=== PATIENT | male | born 1980 | race Caucasian/White ===

== ENCOUNTER 2016-05-22 07:07 | Emergency (ER) | payer OTHER ==
--- NOTE | 2016-05-22 08:41 | ERPHSYRPT ---
- History of Present Illness Time Seen by Provider: 05/22/16 07:15 Source: patient Exam Limitations: no limitations Patient Subjective Stated Complaint: pt complains of right side lower back pain states started this am when he woke up denies any problmes with urination states that the pain is worse when he moves. denies any trauma or injury to the back. Triage Nursing Assessment: pt alert warm and dry resp easy non labored pt ambulated to room without difficulty. Timing/Duration: today Method of Injury: other ( specifically, but pt. lifts equipment at work. He states the weight he lifts is 40-60#, which he places on chest-height level.) Quality: dull, aching Back Pain Location: lumbar spine Severity of Pain-Max: moderate Severity of Pain-Current: moderate Modifying Factors: Improves With: movement Associated Symptoms: denies symptoms Allergies/Adverse Reactions: No Known Drug Allergies Allergy (Unverified 07/08/14 20:53) Home Medications: No Home Meds 1 ea UD 07/08/14 [History] Hx Tetanus, Diphtheria Vaccination/Date Given: Yes Hx Influenza Vaccination/Date Given: No Hx Pneumococcal Vaccination/Date Given: No Immunizations Up to Date: Yes - Review of Systems Constitutional: No Symptoms Eyes: No Symptoms Ears, Nose, & Throat: No Symptoms Respiratory: No Symptoms Cardiac: No Symptoms Abdominal/Gastrointestinal: No Symptoms Genitourinary Symptoms: No Symptoms Musculoskeletal: Back Pain Skin: No Symptoms Psychological: No Symptoms Endocrine: No Symptoms - Past Medical History Pertinent Past Medical History: Yes Neurological History: No Pertinent History ENT History: No Pertinent History Cardiac History: Hypertension Respiratory History: No Pertinent History Endocrine Medical History: No Pertinent History Musculoskeletal History: No Pertinent History GI Medical History: No Pertinent History History: No Pertinent History Psycho-Social History: No Pertinent History Male Reproductive Disorders: No Pertinent History Other Medical History: HTN - Past Surgical History Past Surgical History: Yes Neuro Surgical History: No Pertinent History Cardiac: No Pertinent History Respiratory: No Pertinent History Gastrointestinal: No Pertinent History Genitourinary: No Pertinent History Musculoskeletal: Orthopedic Surgery Male Surgical History: No Pertinent History Other Surgical History: RIGHT FOOT - Social History Smoking Status: Current every day smoker How long have you smoked: 15 years Exposure to second hand smoke: Yes Drug Use: none Patient Lives Alone: No - Nursing Vital Signs Temperature: 98.8 F Temperature Source: Oral Pulse Rate: 82 Respiratory Rate: 18 - Physical Exam General Appearance: mild distress, moderate distress Eye Exam: eyes nml inspection Ears, Nose, Throat Exam: normal ENT inspection, pharynx normal Neck Exam: normal inspection, non-tender, supple, full range of motion Respiratory Exam: normal breath sounds, lungs clear, airway intact Cardiovascular Exam: regular rate/rhythm, normal heart sounds, normal peripheral pulses Gastrointestinal Exam: soft, normal bowel sounds Back Exam: normal inspection, normal range of motion, muscle spasm (right paralumbar) Peripheral Pulses: dorsalis-pedis (R): 4+, dorsalis-pedis (L): 4+ Neurologic Exam: alert, oriented x 3, cooperative, normal mood/affect, nml cerebellar function, nml station & gait, sensation nml Skin Exam: normal color, warm, dry SpO2 Interpretation: normal SpO2: 100 Oxygen Delivery: Room Air - Course Nursing assessment & vital signs reviewed: Yes - Progress Counseled pt/family regarding: diagnosis, need for follow-up - Departure Time of Disposition: 09:00 Departure Disposition: Home Clinical Impression: Lumbar back sprain Qualifiers: Encounter type: initial encounter Qualified Code(s): S33.5XXA - Sprain of ligaments of lumbar spine, initial encounter Condition: Stable Critical Care Time: No Prescriptions: Cyclobenzaprine HCl 10 mg [Cyclobenzaprine 10 MG] 10 mg PO TID PRN #12 tab Naproxen 1 tab PO BID #20 tablet
[2016-05-22 09:32] LABS: Collection Type VOID
[2016-05-22 09:34] LABS: COMPLETE URINE MICROSCOPIC? YES
[2016-05-22 09:35] LABS: ADD URINE CULTURE? NO (NO)
[2016-05-22 09:36] LABS: Epithelial Cells FEW /HPF (FEW); Mucus MODERATE /HPF (NEGATIVE)
[2016-05-22 09:48] VITALS: BP 155/96; PULSE 63; O2SAT 96
== END 2016-05-22 10:03 | disposition home or self-care (01) ==
LOC: ED 07:07
DX: S33.5XXA Sprain of ligaments of lumbar spine, initial encounter (principal); M54.5 Low back pain; X50.0XXA Overexertion from strenuous movement or load, initial encounter
CPT/HCPCS: 81000; 99282

== ENCOUNTER 2016-07-02 08:31 | Emergency (ER) | payer OTHER ==
[2016-07-02] MEDS ORDERED: Rocephin 1000 MG INJ IM ONE (08:43)
[2016-07-02] MEDS ORDERED: XYLOCAINE 1% HCL 20 ML MDV ONE (08:48)
[2016-07-02] MEDS ORDERED: Rocephin 1000 MG INJ ONE (08:48)
--- NOTE | 2016-07-02 08:49 | ERPHSYRPT ---
- History of Present Illness Time Seen by Provider: 07/02/16 08:44 Source: patient Exam Limitations: no limitations Patient Subjective Stated Complaint: pt reports red area noted to right wrist last night-woke this am to swelling redness et pain Triage Nursing Assessment: swelling noted-stiff movements noted to extremity Physician History: pt reports red area noted to right wrist last night-woke this am to swelling redness, no fever, took augmentin one dose he has left. no fever, no red streaks extending to elbow or fingers Timing/Duration: yesterday Severity: moderate Associated Symptoms: denies symptoms Allergies/Adverse Reactions: No Known Drug Allergies Allergy (Verified 07/02/16 08:39) Home Medications: No Home Meds 1 ea UD 07/08/14 [History] Hx Tetanus, Diphtheria Vaccination/Date Given: No Hx Influenza Vaccination/Date Given: No Hx Pneumococcal Vaccination/Date Given: No Immunizations Up to Date: Yes - Review of Systems Constitutional: No Fever, No Chills Eyes: No Symptoms Ears, Nose, & Throat: No Symptoms Respiratory: No Cough, No Dyspnea Cardiac: No Chest Pain, No Edema, No Syncope Abdominal/Gastrointestinal: No Abdominal Pain, No Nausea, No Vomiting, No Diarrhea Genitourinary Symptoms: No Dysuria Musculoskeletal: No Back Pain, No Neck Pain Skin: Cellulitis, Skin Lesions (right elbow), No Rash Neurological: No Dizziness, No Focal Weakness, No Sensory Changes Psychological: No Symptoms Endocrine: No Symptoms All Other Systems: Reviewed and Negative - Past Medical History Pertinent Past Medical History: Yes Neurological History: No Pertinent History ENT History: No Pertinent History Cardiac History: Hypertension Respiratory History: No Pertinent History Endocrine Medical History: No Pertinent History Musculoskeletal History: No Pertinent History GI Medical History: No Pertinent History History: No Pertinent History Psycho-Social History: No Pertinent History Male Reproductive Disorders: No Pertinent History Other Medical History: HTN - Past Surgical History Past Surgical History: Yes Neuro Surgical History: No Pertinent History Cardiac: No Pertinent History Respiratory: No Pertinent History Gastrointestinal: No Pertinent History Genitourinary: No Pertinent History Musculoskeletal: Orthopedic Surgery Male Surgical History: No Pertinent History Other Surgical History: RIGHT FOOT - Social History Smoking Status: Current every day smoker How long have you smoked: 15 years Exposure to second hand smoke: Yes Drug Use: none Patient Lives Alone: No - Nursing Vital Signs Nursing Vital Signs: Initial Vital Signs Temperature 98.3 F Temperature Source Oral Pulse Rate 85 Respiratory Rate 22 Blood Pressure [Left Arm] 182/78 Pain Intensity 10 - Physical Exam General Appearance: no apparent distress, alert Eye Exam: PERRL/EOMI, eyes nml inspection Ears, Nose, Throat Exam: normal ENT inspection, TMs normal, pharynx normal, moist mucous membranes Neck Exam: normal inspection, non-tender, supple, full range of motion Respiratory Exam: normal breath sounds, lungs clear, No respiratory distress Cardiovascular Exam: regular rate/rhythm, normal heart sounds, normal peripheral pulses Gastrointestinal/Abdomen Exam: soft, normal bowel sounds, No tenderness, No mass Back Exam: normal inspection, normal range of motion, No CVA tenderness, No vertebral tenderness Extremity Exam: normal inspection, normal range of motion, pelvis stable, inflammation, swelling, tenderness Neurologic Exam: alert, oriented x 3, cooperative, sensation nml, No motor deficits, No sensory deficit Skin Exam: normal color, warm, dry, No rash Lymphatic Exam: No adenopathy SpO2: 100 Oxygen Delivery: Room Air - Course Nursing assessment & vital signs reviewed: Yes Ordered Tests: Medication Summary Generic Name Dose Route Start Last Admin Trade Name Jay Jayq PRN Reason Stop Dose Admin Ceftriaxone Sodium 1,000 mg 07/02/16 08:43 Rocephin 1000 Mg Inj IM 07/02/16 08:44 STAT ONE - Progress Progress: unchanged, pain not gone completely Counseled pt/family regarding: diagnosis, need for follow-up - Departure Time of Disposition: 08:50 Departure Disposition: Home Clinical Impression: Cellulitis of forearm, right Condition: Stable Critical Care Time: No Referrals: DOCTOR,NO FAMILY [Primary Care Provider] - Instructions: Cellulitis -- Adult Additional Instructions: Please follow the instructions given to you. Please take your medication as prescribed if given. If symptoms recur or get worse, come back to the emergency room if you cannot reach your primary care physician, or call your primary care physician for an appointment. Again if your symptoms get worse, come back to the emergency room. Thanks for visiting emergency room, and let us take care of you. Prescriptions: Mupirocin [Bactroban OINTMENT] 1 gm TP BID #30 tube Levofloxacin [Levaquin 500 MG Tablet] 500 mg PO QAM #10 tablet Naproxen 375 mg [Naprosyn 375 mg] 375 mg PO Q8H #30 tablet
[2016-07-02] MEDS ORDERED: MOTRIN 600 MG PO ONE (09:00)
[2016-07-02] MEDS ORDERED: MOTRIN 600 MG ONE (09:01)
[2016-07-02 09:20] VITALS: BP 160/88; PULSE 80; O2SAT 98
== END 2016-07-02 09:19 | disposition home or self-care (01) ==
LOC: ED 08:31
DX: L03.113 Cellulitis of right upper limb (principal); I10 Essential (primary) hypertension
CPT/HCPCS: 96372; 99282; J0696; A9270-GY

== ENCOUNTER 2018-08-14 12:27 | Observation (INO) | payer OTHER, SELFPAY ==
--- NOTE | 2018-08-14 12:29 | ERPHSYRPT ---
- History of Present Illness Time Seen by Provider: 08/14/18 12:29 Source: patient Exam Limitations: no limitations Physician History: 37 y/o obese white male smoker with htn, presents with progressively worsening soa over several days and cp 2 hours captain/airline pilot. pt has had assoc bilat ankle and feet swelling. denies n/v/d. no abd pain. no bleeding or clotting disorders. no long travel and pt denies being sedentary. Timing/Duration: today (cp), day(s) (soa and leg swelling) Activities at Onset: none Severity of Dyspnea-Max: moderate Severity of Dyspnea-Current: moderate Possible Cause: no prior episodes Modifying Factors: Improves With: activity Associated Symptoms: chest pain/discomfort, ankle swelling, sweating, tingling hands, No calf pain Allergies/Adverse Reactions: No Known Drug Allergies Allergy (Verified 08/14/18 12:51) Hx Tetanus, Diphtheria Vaccination/Date Given: No Hx Influenza Vaccination/Date Given: No Hx Pneumococcal Vaccination/Date Given: No - Review of Systems Constitutional: No Symptoms Eyes: No Symptoms Ears, Nose, & Throat: No Symptoms Respiratory: Dyspnea Cardiac: Chest Pain Abdominal/Gastrointestinal: No Symptoms Genitourinary Symptoms: No Symptoms Musculoskeletal: No Symptoms Skin: No Symptoms Neurological: No Symptoms Psychological: No Symptoms Endocrine: No Symptoms Hematologic/Lymphatic: No Symptoms Immunological/Allergic: No Symptoms All Other Systems: Reviewed and Negative - Past Medical History Pertinent Past Medical History: Yes Neurological History: No Pertinent History ENT History: No Pertinent History Cardiac History: Hypertension Respiratory History: No Pertinent History Endocrine Medical History: No Pertinent History Musculoskeletal History: No Pertinent History GI Medical History: No Pertinent History History: No Pertinent History Psycho-Social History: No Pertinent History Male Reproductive Disorders: No Pertinent History Other Medical History: HTN - Past Surgical History Past Surgical History: Yes Neuro Surgical History: No Pertinent History Cardiac: No Pertinent History Respiratory: No Pertinent History Gastrointestinal: No Pertinent History Genitourinary: No Pertinent History Musculoskeletal: Orthopedic Surgery Male Surgical History: No Pertinent History Other Surgical History: RIGHT FOOT - Social History Smoking Status: Current every day smoker How long have you smoked: 15 years Exposure to second hand smoke: Yes Drug Use: none Patient Lives Alone: No - Nursing Vital Signs Nursing Vital Signs: Initial Vital Signs Temperature 98.2 F 08/14/18 12:27 Pulse Rate 88 08/14/18 12:27 Respiratory Rate 18 08/14/18 12:27 Blood Pressure 154/92 08/14/18 12:27 O2 Sat by Pulse Oximetry 97 08/14/18 12:27 Pain Scale Pain Intensity 4 - Physical Exam General Appearance: mild distress, alert, anxiety Eye Exam: PERRL/EOMI, eyes nml inspection Ears, Nose, Throat Exam: hearing grossly normal, normal ENT inspection, normal pharynx Neck Exam: normal inspection, non-tender, supple, full range of motion Respiratory Exam: normal breath sounds, chest tenderness, lungs clear, airway intact, No respiratory distress Cardiovascular/Chest Exam: normal heart sounds, regular rate/rhythm Abdominal/Gastrointestinal Exam: soft, normal bowel sounds, No tenderness Rectal Exam: not done Extremity Exam: non-tender, normal range of motion, pelvis stable, pedal edema Neurologic Exam: alert, oriented x 3, cooperative, 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 ) Ordered Tests: Active Orders 24 hr Category Date Time Status Wool Classer STAT Care 08/14/18 12:36 Active EKG-ER Only STAT Care 08/14/18 12:35 Active IV Insertion STAT Care 08/14/18 12:35 Active Pulse Oximetry (ED) STAT Care 08/14/18 12:35 Active CHEST 1 VIEW (PORTABLE) Stat Exams 08/14/18 12:35 Completed CHEST WITH CONTRAST [CT] Stat Exams 08/14/18 14:17 Completed VENOUS BILATERAL EXTREMITY [US] Stat Exams 08/14/18 14:17 Completed CBC W DIFF Stat Lab 08/14/18 12:40 Completed CMP Stat Lab 08/14/18 12:40 Completed D-DIMER QUANTITATION Stat Lab 08/14/18 12:40 Completed NT PRO BNP Stat Lab 08/14/18 12:40 Completed PROTIME WITH INR Stat Lab 08/14/18 12:40 Completed TROPONIN Q3H Lab 08/14/18 12:40 Completed TROPONIN Q3H Lab 08/14/18 15:45 Ordered TROPONIN Q3H Lab 08/14/18 18:45 Ordered TROPONIN Q3H Lab 08/14/18 21:45 Ordered TROPONIN Q3H Lab 08/15/18 00:45 Ordered Medication Summary Generic Name Dose Route Start Last Admin Trade Name Evans PRN Reason Stop Dose Admin Sodium Chloride 1,000 mls @ 50 mls/hr 08/14/18 12:45 08/14/18 12:47 Sodium Chloride 0.9% 1000 Ml IV 09/13/18 12:44 50 mls/hr .Q20H CRESENCIO Administration Discontinued Medications Generic Name Dose Route Start Last Admin Trade Name Evans PRN Reason Stop Dose Admin Aspirin 324 mg 08/14/18 12:35 08/14/18 12:47 Baby Aspirin 81 Mg Chew PO 08/14/18 12:36 324 mg STAT ONE Administration Aspirin Confirm 08/14/18 12:40 Baby Aspirin 81 Mg Chew Administered 08/14/18 12:41 Dose 324 mg .ROUTE .STK-MED ONE Enoxaparin Sodium 140 mg 08/14/18 15:08 Enoxaparin Sodium SQ 08/14/18 15:09 STAT ONE Nitroglycerin 0.4 mg 08/14/18 12:35 08/14/18 12:47 Nitrostat 0.4 Mg (Ed) SL 08/14/18 12:36 0.4 mg STAT ONE Administration Nitroglycerin Confirm 08/14/18 12:40 Nitrostat 0.4 Mg (Ed) Administered 08/14/18 12:41 Dose 0.4 mg SL .STK-MED ONE Ondansetron HCl 4 mg 08/14/18 12:35 08/14/18 12:47 Zofran 4 Mg/2 Ml Vial IV 08/14/18 12:36 4 mg STAT ONE Administration Ondansetron HCl Confirm 08/14/18 12:40 Zofran 4 Mg/2 Ml Vial Administered 08/14/18 12:41 Dose 4 mg .ROUTE .STK-MED ONE Lab/Rad Data: Laboratory Result Diagrams 08/14/18 12:40 08/14/18 12:40 Laboratory Results 08/14/18 08/14/18 08/14/18 Range/Units 12:40 12:40 12:40 WBC (4.0-10.5) K/mm3 RBC (4.1-5.6) M/mm3 Hgb (12.5-18.0) gm/dl Hct (42-50) % MCV (78-100) fl MCH (26-32) pg MCHC (32-36) g/dl RDW (11.5-14.0) % Plt Count (150-450) K/mm3 MPV (6-9.5) fl Gran % (36.0-66.0) % Eos # (Auto) (0-0.5) Absolute Lymphs (auto) (1.0-4.6) Absolute Monos (auto) (0.0-1.3) Lymphocytes % (24.0-44.0) % Monocytes % (0.0-12.0) % Eosinophils % (0.00-5.0) % Basophils % (0.0-0.4) % Absolute Granulocytes (1.4-6.9) Basophils # (0-0.4) PT 12.7 (8.83-12.87) SECONDS INR 1.12 (0.8-3.0) D-Dimer 3735 H* (215-500) ng/mL Sodium 141 (137-145) mmol/L Potassium 3.4 L (3.5-5.1) mmol/L Chloride 98 (98-107) mmol/L Carbon Dioxide 28 (22-30) mmol/L Anion Gap 18.3 H (5-15) MEQ/L BUN 19 (9-20) mg/dL Creatinine 1.25 (0.66-1.25) mg/dL Estimated GFR > 60.0 ML/MIN Glucose 110 H (74-106) mg/dL Calcium 10.4 H (8.4-10.2) mg/dL Total Bilirubin 1.20 (0.2-1.3) mg/dL AST 38 (17-59) U/L ALT 25 (0-50) U/L Alkaline Phosphatase 67 (38-126) U/L Troponin I < 0.012 (0.000-0.034) ng/mL NT-Pro-B Natriuret Pep 40.0 (0-450) pg/mL Serum Total Protein 9.0 H (6.3-8.2) g/dL Albumin 4.9 (3.5-5.0) g/dL 08/14/18 Range/Units 12:40 WBC 8.7 (4.0-10.5) K/mm3 RBC 5.00 (4.1-5.6) M/mm3 Hgb 14.8 (12.5-18.0) gm/dl Hct 42.6 (42-50) % MCV 85.2 (78-100) fl MCH 29.6 (26-32) pg MCHC 34.7 (32-36) g/dl RDW 13.7 (11.5-14.0) % Plt Count 229 (150-450) K/mm3 MPV 10.6 H (6-9.5) fl Gran % 66.0 (36.0-66.0) % Eos # (Auto) 0.13 (0-0.5) Absolute Lymphs (auto) 2.07 (1.0-4.6) Absolute Monos (auto) 0.73 (0.0-1.3) Lymphocytes % 23.9 L (24.0-44.0) % Monocytes % 8.4 (0.0-12.0) % Eosinophils % 1.5 (0.00-5.0) % Basophils % 0.2 (0.0-0.4) % Absolute Granulocytes 5.71 (1.4-6.9) Basophils # 0.02 (0-0.4) PT (8.83-12.87) SECONDS INR (0.8-3.0) D-Dimer (215-500) ng/mL Sodium (137-145) mmol/L Potassium (3.5-5.1) mmol/L Chloride (98-107) mmol/L Carbon Dioxide (22-30) mmol/L Anion Gap (5-15) MEQ/L BUN (9-20) mg/dL Creatinine (0.66-1.25) mg/dL Estimated GFR ML/MIN Glucose (74-106) mg/dL Calcium (8.4-10.2) mg/dL Total Bilirubin (0.2-1.3) mg/dL AST (17-59) U/L ALT (0-50) U/L Alkaline Phosphatase (38-126) U/L Troponin I (0.000-0.034) ng/mL NT-Pro-B Natriuret Pep (0-450) pg/mL Serum Total Protein (6.3-8.2) g/dL Albumin (3.5-5.0) g/dL - Progress Progress: improved Air Movement: good Progress Note: 08/14/18 15:19 ct chest-multiple bilat small nonoccluding pulm emboli; venous doppler nonoccluding dvt left popliteal. spoke with dr. rojas. i reviewed pt hx, condition, lab, ekg and xray results. she accepts pt for observation. will start lovenox. - Departure Referrals: DOCTOR,NO FAMILY [NON-STAFF PHY W/O PRIVILEGES] -
[2018-08-14] MEDS ORDERED: Zofran 4 MG/2 ML VIAL IV ONE (12:35)
[2018-08-14] MEDS ORDERED: Nitrostat 0.4 MG (ED) SL ONE ×2 (12:35→12:40)
[2018-08-14] MEDS ORDERED: BABY ASPIRIN 81 MG CHEW PO ONE (12:35)
[2018-08-14] MEDS ORDERED: Sodium Chloride 0.9% 1000 ML 1,000 ML ONE (12:40)
[2018-08-14] MEDS ORDERED: BABY ASPIRIN 81 MG CHEW ONE (12:40)
[2018-08-14] MEDS ORDERED: Zofran 4 MG/2 ML VIAL ONE (12:40)
[2018-08-14] MEDS ORDERED: Sodium Chloride 0.9% 1000 ML 1,000 ML IV SCH (12:45)
[2018-08-14 12:49] LABS: BASOPHIL % 0.2 % (0.0-0.4); Basophil (Absolute #) 0.02 (0-0.4); Eosinophil % 1.5 % (0.00-5.0); Eosinophil (Absolute #) 0.13 (0-0.5); Granulocyte Absolute (ANC) 5.71 (1.4-6.9); Hematocrit 42.6 % (42-50); Hemoglobin 14.8 gm/dl (12.5-18.0); Lymphocyte (Absolute #) 2.07 (1.0-4.6); Lymphocytes % 23.9 % (24.0-44.0); Mean Cell Volume 85.2 fl (78-100); Mean Corpuscular Hemoglobin 29.6 pg (26-32); Mean Corpuscular Hgb Concent. 34.7 g/dl (32-36); Mean Platelet Volume 10.6 fl (6-9.5); Monocytes % 8.4 % (0.0-12.0); Platelet Count 229 K/mm3 (150-450); Red Cell Distribution Width 13.7 % (11.5-14.0); White Blood Count 8.7 K/mm3 (4.0-10.5)
[2018-08-14 12:56] LABS: INR 1.12 (0.8-3.0); PROTIME 12.7 SECONDS (8.83-12.87)
--- NOTE | 2018-08-14 12:59 | XRAY ---
Indication: Short of breath. Chest pain. Comparison: None Portable chest demonstrates subtle lingula interstitial alveolar opacity and calcified granuloma. Remaining heart, lungs, and bony thorax normal.
[2018-08-14 13:10] LABS: ALBUMIN 4.9 g/dL (3.5-5.0); ALKALINE PHOSPHATASE 67 U/L (38-126); ANION GAP 18.3 MEQ/L (5-15); BLOOD UREA NITROGEN 19 mg/dL (9-20); CHLORIDE 98 mmol/L (98-107); Calcium 10.4 mg/dL (8.4-10.2); Carbon Dioxide 28 mmol/L (22-30); Creatinine 1 1.25 mg/dL (0.66-1.25); Glucose 110 mg/dL (74-106); Potassium 3.4 mmol/L (3.5-5.1); SGOT/AST 38 U/L (17-59); SGPT/ALT 25 U/L (0-50); SODIUM 141 mmol/L (137-145)
--- NOTE | 2018-08-14 14:47 | XRAY ---
Indication: Short of breath. Chest pressure. Elevated d-dimer. Bilateral leg swelling. Multiple contiguous axial images obtained through the chest using 80 cc Isovue 370 contrast and PE protocol. Comparison: None There is satisfactory opacification of the pulmonary arteries to include the lobar and segmental branches. Nonoccluding pulmonary emboli seen in the distal right main pulmonary artery extending into all right lobar branches. Additional nonoccluding pulmonary emboli seen in the lingula and left lower lobe branches. Heart is not enlarged. Aorta is normal in course and caliber. Left hilar calcified nodes. No pathologic mediastinal/hilar lymphadenopathy. Examination of the lung parenchyma demonstrates minimal bilateral dependent atelectasis and a few left lung calcified granulomas. No suspicious pulmonary mass, infiltrate, or effusion. Bony thorax intact. Limited upper abdomen demonstrates diffuse fatty liver and 15.5 cm splenomegaly. Impression: 1. Multiple nonoccluding bilateral pulmonary emboli as detailed. No distal infarct. 2. Incidental fatty liver, splenomegaly, and evidence for old granulomatous disease. CT DI 23.68
--- NOTE | 2018-08-14 14:52 | XRAY ---
Indication: Swelling. Two-dimensional sonogram and color Doppler imaging of the major venous vessels of the left and right leg was performed. Comparison: None Left leg demonstrates nonoccluding thrombi in the popliteal vein. No thrombus seen in the remaining examined deep venous vessels of the left and right leg including greater saphenous veins. The patent veins demonstrate normal compressibility and normal venous waveforms with and without augmentation.. Impression: Left popliteal vein nonoccluding DVT. Right leg negative for DVT.
[2018-08-14] MEDS ORDERED: ENOXAPARIN SODIUM SQ ONE (15:08)
[2018-08-14] MEDS ORDERED: Zofran 4 MG/2 ML VIAL IV PRN (15:46)
[2018-08-14] MEDS ORDERED: TYLENOL 325 MG PO PRN (15:46)
[2018-08-14] MEDS: Sodium Chloride 0.9% 1000 ML 1,000 ML IV SCH (16:13)
[2018-08-14] MEDS ORDERED: NEURONTIN 300 MG PO PRN (17:23)
--- NOTE | 2018-08-14 18:01 | PCM.HP ---
History of Present Illness - Chief Complaint Chief Complaint: PE and dvt History of Present Illness: is a 37 year old male. Patient states he has had a gradual onset of shortness of breath . Chest pain started x 1 day and he presented to ER. He was found to have a left popliteal DVT and PE,nonoccluding. ER reports VSS,EKG - normal,and Troponin not elevated. D-Dimer was elevated.Patient is on medication for Gout and HTN and Hyperlipidemia. He is a daily smoker and has a sedentary job .He states he got hooked on Percocet after a foot injury with a lawnmower and has been on methadone from the [facility] in [place] for about 3 months.Had a dose this morning but is unsure of the dose.They are weaning him.He states there is no known Family Hx of blood clots. - Review of Systems Constitutional: No Fever, No Chills Ears, Nose, & Throat: No Symptoms Respiratory: Cough, Short Of Breath, Other (denies hemoptysis) Cardiac: Chest Pain, Edema, Other (HTN taking meds as directed) Abdominal/Gastrointestinal: No Abdominal Pain, No Nausea, No Vomiting, No Diarrhea Genitourinary Symptoms: No Dysuria Musculoskeletal: Back Pain (left low back,chronic) Skin: No Rash Neurological: No Dizziness, No Focal Weakness, No Sensory Changes Psychological: Other (Hx drug dependance to Percocet.) Endocrine: No Symptoms Hematologic/Lymphatic: Other (see HPI) Medications & Allergies Home Medications: Home Medication List Allopurinol 100 mg [Zyloprim 100 mg] 1 tab PO DAILY 08/14/18 [History Confirmed 08/14/18] Benazepril HCl 20 mg PO DAILY 08/14/18 [History Confirmed 08/14/18] Fenofibrate Nanocrystallized [Fenofibrate] 145 mg PO DAILY 08/14/18 [History Confirmed 08/14/18] Gabapentin 600 mg PO DAILY PRN 08/14/18 [History Confirmed 08/14/18] Levothyroxine Sodium 50 mcg PO DAILY 08/14/18 [History Confirmed 08/14/18] Allergies/Adverse Reactions: Allergies Allergy/AdvReac Type Severity Reaction Status Date / Time No Known Drug Allergies Allergy Verified 08/14/18 12:51 - Past Medical History Past Medical History: Yes Neurological History: No Pertinent History ENT History: No Pertinent History Cardiac History: Hypertension Respiratory History: No Pertinent History, Other (smoker) Endocrine Medical History: No Pertinent History Musculoskelatal History: No Pertinent History GI Medical History: No Pertinent History History: No Pertinent History Pyscho-Social History: No Pertinent History Male Reproductive Disorders: No Pertinent History Comment: HTN - Past Surgical History Past Surgical History: Yes Neuro Surgical History: No Pertinent History Cardiac History: No Pertinent History Respiratory Surgery: No Pertinent History GI Surgical History: No Pertinent History Genitourinary Surgical Hx: No Pertinent History Musculskeletal Surgical Hx: Orthopedic Surgery Male Surgical History: No Pertinent History Other Surgical History: RIGHT FOOT - Social History Smoking Status: Current every day smoker How long have you smoked: 15 years Exposure to second hand smoke: Yes Alcohol: None Drug Use: none - Physical Exam Vital Signs: Vital Signs - 24 hr Temp Pulse Resp BP Pulse Ox 08/14/18 16:02 98.5 F 64 18 171/85 95 08/14/18 15:50 98.5 F 64 18 171/85 95 08/14/18 15:40 98.5 F 64 18 171/85 95 08/14/18 14:50 97.9 F 67 18 99/73 98 08/14/18 13:18 97.5 F 75 16 127/72 95 08/14/18 12:48 18 97 08/14/18 12:35 97 08/14/18 12:27 98.2 F 88 18 154/92 97 General Appearance: no apparent distress, alert Neurologic Exam: alert, oriented x 3, cooperative, normal mood/affect, nml cerebellar function, nml station & gait, sensation nml, No motor deficits Eye Exam: PERRL/EOMI, eyes nml inspection Ears, Nose, Throat Exam: normal ENT inspection Neck Exam: normal inspection Respiratory Exam: wheezing (left mid low lung macias), other (no dyspnea) Gastrointestinal/Abdomen Exam: other (obese,non tender) Rectal Exam: not done Back Exam: other (left paralumbar spasm) Extremity Exam: calf tenderness (left), swelling (left mid calf to ankle), other (DP pulse palpable but not bounding) Skin Exam: warm, rash Results - Labs Lab/Micro Results: Lab Results-Last 24 Hours 08/14/18 08/14/18 08/14/18 Range/Units 12:40 12:40 12:40 WBC 8.7 (4.0-10.5) K/mm3 RBC 5.00 (4.1-5.6) M/mm3 Hgb 14.8 (12.5-18.0) gm/dl Hct 42.6 (42-50) % MCV 85.2 (78-100) fl MCH 29.6 (26-32) pg MCHC 34.7 (32-36) g/dl RDW 13.7 (11.5-14.0) % Plt Count 229 (150-450) K/mm3 MPV 10.6 H (6-9.5) fl Gran % 66.0 (36.0-66.0) % Eos # (Auto) 0.13 (0-0.5) Absolute Lymphs (auto) 2.07 (1.0-4.6) Absolute Monos (auto) 0.73 (0.0-1.3) Lymphocytes % 23.9 L (24.0-44.0) % Monocytes % 8.4 (0.0-12.0) % Eosinophils % 1.5 (0.00-5.0) % Basophils % 0.2 (0.0-0.4) % Absolute Granulocytes 5.71 (1.4-6.9) Basophils # 0.02 (0-0.4) PT 12.7 (8.83-12.87) SECONDS INR 1.12 (0.8-3.0) D-Dimer 3735 H* (215-500) ng/mL Sodium 141 (137-145) mmol/L Potassium 3.4 L (3.5-5.1) mmol/L Chloride 98 (98-107) mmol/L Carbon Dioxide 28 (22-30) mmol/L Anion Gap 18.3 H (5-15) MEQ/L BUN 19 (9-20) mg/dL Creatinine 1.25 (0.66-1.25) mg/dL Estimated GFR > 60.0 ML/MIN Glucose 110 H (74-106) mg/dL Calcium 10.4 H (8.4-10.2) mg/dL Total Bilirubin 1.20 (0.2-1.3) mg/dL AST 38 (17-59) U/L ALT 25 (0-50) U/L Alkaline Phosphatase 67 (38-126) U/L Troponin I (0.000-0.034) ng/mL NT-Pro-B Natriuret Pep 40.0 (0-450) pg/mL Serum Total Protein 9.0 H (6.3-8.2) g/dL Albumin 4.9 (3.5-5.0) g/dL 08/14/18 08/14/18 Range/Units 12:40 15:45 WBC (4.0-10.5) K/mm3 RBC (4.1-5.6) M/mm3 Hgb (12.5-18.0) gm/dl Hct (42-50) % MCV (78-100) fl MCH (26-32) pg MCHC (32-36) g/dl RDW (11.5-14.0) % Plt Count (150-450) K/mm3 MPV (6-9.5) fl Gran % (36.0-66.0) % Eos # (Auto) (0-0.5) Absolute Lymphs (auto) (1.0-4.6) Absolute Monos (auto) (0.0-1.3) Lymphocytes % (24.0-44.0) % Monocytes % (0.0-12.0) % Eosinophils % (0.00-5.0) % Basophils % (0.0-0.4) % Absolute Granulocytes (1.4-6.9) Basophils # (0-0.4) PT (8.83-12.87) SECONDS INR (0.8-3.0) D-Dimer (215-500) ng/mL Sodium (137-145) mmol/L Potassium (3.5-5.1) mmol/L Chloride (98-107) mmol/L Carbon Dioxide (22-30) mmol/L Anion Gap (5-15) MEQ/L BUN (9-20) mg/dL Creatinine (0.66-1.25) mg/dL Estimated GFR ML/MIN Glucose (74-106) mg/dL Calcium (8.4-10.2) mg/dL Total Bilirubin (0.2-1.3) mg/dL AST (17-59) U/L ALT (0-50) U/L Alkaline Phosphatase (38-126) U/L Troponin I < 0.012 < 0.012 (0.000-0.034) ng/mL NT-Pro-B Natriuret Pep (0-450) pg/mL Serum Total Protein (6.3-8.2) g/dL Albumin (3.5-5.0) g/dL - Radiology Impressions Radiology Exams & Impressions: Radiology Procedures Category Date Time Status CHEST 1 VIEW (PORTABLE) Stat Exams 08/14/18 12:35 Completed CHEST WITH CONTRAST [CT] Stat Exams 08/14/18 14:17 Completed VENOUS BILATERAL EXTREMITY [US] Stat Exams 08/14/18 14:17 Completed Assessment/Plan (1) Deep vein thrombosis (DVT) of popliteal vein of left lower extremity Current Visit: Yes Status: Acute Assessment & Plan: Lovenox given in ER Code(s): I82.432 - ACUTE EMBOLISM AND THROMBOSIS OF LEFT POPLITEAL VEIN (2) Pulmonary embolism Current Visit: Yes Status: Acute Assessment & Plan: received Lovenox in ER.stable at present,no dyspnea or cough.Transition to oral anticoagulant per Pulvi Mixer Operator .(to consult,is here now). Will start Eliquis 10 mg tomorrow ,then Elliquis starter pack RX.(10 mg bid x 7 days then 5 mg bid x 6 months)Observe through tomorrow possible discharge home 08/16/18 am. Code(s): I26.99 - OTHER PULMONARY EMBOLISM WITHOUT ACUTE COR PULMONALE (3) Hypertension Current Visit: Yes Status: Acute Assessment & Plan: controlled ,continue current meds Code(s): I10 - ESSENTIAL (PRIMARY) HYPERTENSION (4) Methadone dependence Current Visit: Yes Status: Acute Assessment & Plan: Patient is a patient at [facility] and receives a daily dose , being weened. Call Clinic in AM for dose schedule. Code(s): F11.20 - OPIOID DEPENDENCE, UNCOMPLICATED (5) Hypercholesteremia Current Visit: Yes Status: Acute Assessment & Plan: continue home meds Code(s): E78.00 - PURE HYPERCHOLESTEROLEMIA, UNSPECIFIED (6) Gout Current Visit: Yes Status: Acute Assessment & Plan: asymptomatic,continue Allopurinol. Code(s): M10.9 - GOUT, UNSPECIFIED
[2018-08-14] MEDS ORDERED: ENOXAPARIN SODIUM SQ SCH (22:00)
[2018-08-15 06:00] LABS: BASOPHIL % 0.4 % (0.0-0.4); Basophil (Absolute #) 0.02 (0-0.4); Eosinophil % 3.6 % (0.00-5.0); Eosinophil (Absolute #) 0.18 (0-0.5); Granulocyte Absolute (ANC) 2.32 (1.4-6.9); Hematocrit 40.2 % (42-50); Hemoglobin 13.5 gm/dl (12.5-18.0); Lymphocyte (Absolute #) 1.87 (1.0-4.6); Lymphocytes % 37.9 % (24.0-44.0); Mean Cell Volume 87.2 fl (78-100); Mean Corpuscular Hemoglobin 29.3 pg (26-32); Mean Corpuscular Hgb Concent. 33.6 g/dl (32-36); Mean Platelet Volume 10.6 fl (6-9.5); Monocytes % 11.1 % (0.0-12.0); Platelet Count 179 K/mm3 (150-450); Red Blood Count 4.61 M/mm3 (4.1-5.6); Red Cell Distribution Width 13.9 % (11.5-14.0); White Blood Count 4.9 K/mm3 (4.0-10.5)
[2018-08-15 06:14] LABS: ALBUMIN 4.2 g/dL (3.5-5.0); ALKALINE PHOSPHATASE 59 U/L (38-126); ANION GAP 13.7 MEQ/L (5-15); BLOOD UREA NITROGEN 20 mg/dL (9-20); CHLORIDE 98 mmol/L (98-107); Calcium 9.2 mg/dL (8.4-10.2); Carbon Dioxide 30 mmol/L (22-30); Creatinine 1 0.94 mg/dL (0.66-1.25); Glucose 102 mg/dL (74-106); Potassium 3.6 mmol/L (3.5-5.1); SGOT/AST 28 U/L (17-59); SGPT/ALT 20 U/L (0-50); SODIUM 139 mmol/L (137-145); Total Protein 7.4 g/dL (6.3-8.2)
[2018-08-15] MEDS ORDERED: DOLOPHINE 10MG Tablet PO ONE (07:30)
--- NOTE | 2018-08-15 09:17 | CONS ---
CONSULT DATE: 08/14/2018 HISTORY: Bao Parker is a 37 year-old obese male who presented to the emergency room at [facility] with sudden onset of shortness of breath and chest discomfort that started two hours prior to admission. The patient reported left leg swelling for the last few days as well. He was noted to have positive D-dimer test. Subsequently, he underwent CT that showed bilateral small pulmonary emboli. Venous Doppler's performed through the emergency room were also positive for deep venous thrombosis of left popliteal area. The patient has had no obvious risk factors for deep venous thrombosis or pulmonary embolism. He also denies prior history of similar problems. He was treated with Lovenox and has been admitted for further care. At the time of my evaluation he is on room air and appears comfortable and remains hemodynamically stable. He is unaware of any family history of hypercoagulable state. However the patient appears to be at risk for the same given his current symptoms. PAST MEDICAL HISTORY: Positive for history of hypertension, hypothyroidism, gout. PAST SURGICAL HISTORY: Right ankle surgery about three years ago from a lawnmower injury. PERSONAL AND SOCIAL HISTORY: He currently works for [employer]. His job requires somewhat sedentary lifestyle. He smokes about a pack of cigarettes a day. MEDICATIONS: Home and current medications are reviewed. ALLERGIES: NKDA. PHYSICAL EXAMINATION: This is a middle aged male who appears comfortable. Vital signs noted. HEENT: Normocephalic. He is partially edentulous. NECK: Supple. CVS: First and second heart sounds are normal, regular, rhythmic. RESPIRATORY: Shows diminished breath sounds. ABDOMEN: Soft, obese. EXTREMITIES: Left lower extremity swelling is noted. LABORATORY DATA AND TESTS: Radiology tests reviewed. ASSESSMENT: This is a 37 year old male without obvious risk factors admitted with: 1) Bilateral pulmonary emboli. 2) Left lower extremity deep venous thrombosis. 3) Likely underlying hypercoagulable state. 4) Obesity. 5) Hypertension. 6) Hypothyroidism. 7) Gout. RECOMMENDATIONS: 1) I discussed with patient CT and Doppler findings. 2) The patient has been started on Lovenox, will probably switch him to Eliquis tomorrow. 3) The patient is currently without significant hypoxemia and hemodynamically stable. The same will have to be monitored for at least 24 hours. 4) If discharged, would like to continue Eliquis for at least six months at the end of which will repeat CT and Doppler's to document resolution of deep venous thrombosis and pulmonary embolism. I would recommend at that point once the clot burden has resolved the patient can be taken off anticoagulation and hypercoag work up be done. Need for smoking cessation was stressed. Continue other supportive care. I will continue to follow in outpatient setting or earlier as needed. These recommendations were discussed with Dr. Gauthier. Thank you for allowing me to participate in the care of Bao Parker.
[2018-08-15] MEDS: SYNTHROID 50 MCG PO SCH (09:42)
[2018-08-15] MEDS: ZYLOPRIM 100 MG PO SCH (09:42)
[2018-08-15] MEDS: Tricor 145 MG PO SCH (09:42)
[2018-08-15] MEDS: Lotensin 10 MG PO SCH (09:42)
[2018-08-15] MEDS: ELIQUIS 2.5 MG TABLET PO SCH ×2 (09:42→21:52)
[2018-08-15] MEDS: Sodium Chloride 0.9% 1000 ML 1,000 ML IV SCH (09:42)
[2018-08-16] MEDS ORDERED: DOLOPHINE 10MG Tablet PO ONE (06:00)
[2018-08-16] MEDS: Sodium Chloride 0.9% 1000 ML 1,000 ML IV SCH (06:27)
[2018-08-16] MEDS: Lotensin 10 MG PO SCH (09:43)
[2018-08-16] MEDS: SYNTHROID 50 MCG PO SCH (09:43)
[2018-08-16] MEDS: ZYLOPRIM 100 MG PO SCH (09:43)
[2018-08-16] MEDS: ELIQUIS 2.5 MG TABLET PO SCH (09:43)
[2018-08-16] MEDS: Tricor 145 MG PO SCH (09:43)
--- NOTE | 2018-08-16 12:37 | PCM.DS ---
Discharge Summary Date of Admission: 08/14/18 15:40 Date of Discharge: 08/16/18 Admitting Physician: TRUE MARTÍNEZ DO Primary Care Provider: PALAK ALTAMIRANO Allergies Allergies No Known Drug Allergies Allergy (Verified 08/14/18 12:51) Hospital Summary - Hospital Course Hospital Course: Patient was admitted through ER with DVT left popliteal vein and small PE. He c/ o SOB for about a week and chest pain x 1 day - Vitals & Intake/Output Vital Signs: Vital Signs Temperature 97.7 F 08/16/18 08:00 Pulse Rate 51 L 08/16/18 08:00 Respiratory Rate 16 08/16/18 08:00 Blood Pressure 106/54 08/16/18 08:00 O2 Sat by Pulse Oximetry 96 08/16/18 08:00 Oxygen-Last Documented O2 Percentage 2 Liters = 28% Intake & Output: Intake & Output 08/14/18 08/15/18 08/16/18 08/17/18 11:59 11:59 11:59 11:59 Intake Total 2561 3932 Output Total 350 2350 Balance 2211 1582 Weight 138 kg 140.3 kg - Lab Result Diagrams: 08/15/18 05:15 08/15/18 05:15 - Radiology Exams Ordered Rad Exams-Entire Visit: Radiology Procedures Category Date Time Status CHEST 1 VIEW (PORTABLE) Stat Exams 08/14/18 12:35 Completed CHEST WITH CONTRAST [CT] Stat Exams 08/14/18 14:17 Completed VENOUS BILATERAL EXTREMITY [US] Stat Exams 08/14/18 14:17 Completed - Procedures and Test Procedures and Tests throughout Hospitalization: Therapy Orders & Screens 08/14/18 16:08 Smoking Cessation Education ONCE Comment: Diagnosis: PE and dvt Smoking Status: Current every day smoker How long have you smoked: 15 years Do you dip or chew tobacco: No 08/15/18 08:25 Qualify for Home Oxygen TODAY Comment: Diagnosis: PE and dvt 08/15/18 09:47 Oxygen NASAL CANNULA 2 lpm Comment: Diagnosis: PE and dvt Final Diagnosis/Problem List - Final Discharge Diagnosis/Problem (1) Deep vein thrombosis (DVT) of popliteal vein of left lower extremity Current Visit: Yes Status: Acute Code(s): I82.432 - ACUTE EMBOLISM AND THROMBOSIS OF LEFT POPLITEAL VEIN (2) Pulmonary embolism Current Visit: Yes Status: Acute Code(s): I26.99 - OTHER PULMONARY EMBOLISM WITHOUT ACUTE COR PULMONALE (3) Hypertension Current Visit: Yes Status: Acute Code(s): I10 - ESSENTIAL (PRIMARY) HYPERTENSION (4) Methadone dependence Current Visit: Yes Status: Acute Code(s): F11.20 - OPIOID DEPENDENCE, UNCOMPLICATED (5) Hypercholesteremia Current Visit: Yes Status: Acute Code(s): E78.00 - PURE HYPERCHOLESTEROLEMIA , UNSPECIFIED (6) Gout Current Visit: Yes Status: Acute Code(s): M10.9 - GOUT, UNSPECIFIED - Discharge Disposition: Home, Self-Care Condition: Stable Prescriptions: No Action Levothyroxine Sodium 50 mcg PO DAILY Gabapentin 600 mg PO DAILY PRN PRN Reason: Pain Fenofibrate Nanocrystallized [Fenofibrate] 145 mg PO DAILY Benazepril HCl 20 mg PO DAILY Allopurinol 100 mg [Zyloprim 100 mg] 1 tab PO DAILY Follow up with: JHON PRADO [ACTIVE STAFF] - 1 month (f/u in a month )
[2018-08-16 13:43] VITALS: BP 138/80; PULSE 55; O2SAT 97
[2018-08-22] MEDS ORDERED: ELIQUIS 2.5 MG TABLET PO SCH (10:00)
== END 2018-08-16 14:30 | disposition home or self-care (01) ==
LOC: ED 12:27 → MED SURG 15:40
PROVIDERS: ADMIT Family Medicine; ATTEND Family Medicine
DX: I82.432 Acute embolism and thrombosis of left popliteal vein (principal); I26.99 Other pulmonary embolism without acute cor pulmonale; I10 Essential (primary) hypertension; F11.20 Opioid dependence, uncomplicated; E78.00 Pure hypercholesterolemia, unspecified; M10.9 Gout, unspecified; E78.5 Hyperlipidemia, unspecified; E03.9 Hypothyroidism, unspecified; Z79.899 Other long term (current) drug therapy; F17.200 Nicotine dependence, unspecified, uncomplicated; E66.9 Obesity, unspecified; Z68.38 Body mass index [BMI] 38.0-38.9, adult
CPT/HCPCS: 36000; 36415; 71045; 71260; 80053; 83880; 84484; 85025; 85379; 85610; 93005; 93041; 93268; 93970; 94762; 96360; 96361; 96372; 96374; 99285; G0378; 96375; J1650; J2405; A9270-GY

== ENCOUNTER 2018-08-19 15:47 | Emergency (ER) | payer OTHER ==
[2018-08-19 16:02] VITALS: O2SAT 98
--- NOTE | 2018-08-19 16:21 | ERPHSYRPT ---
- History of Present Illness Time Seen by Provider: 08/19/18 16:18 Source: patient Exam Limitations: no limitations (and in) Patient Subjective Stated Complaint: pt here for swelling to both lower legs off and on since sunday, he was dx in er on sunday with 2 PE and one left leg DVT and started on a blood thinner, Triage Nursing Assessment: pt alert, walked in, resp easy, skin w/d/p, no cough , has swelling to lower legs, no reddness, no pain in leg Physician History: This is a 37-year-old white male recently diagnosed with pulmonary embolism and also left lower leg DVT arrives with complaint of feeling as if his lower legs are swelling. Patient is already on elequis which he started on August 14, 2018 Past medical history includes orthopedic surgery right foot PE, high blood pressure, DVT Past surgical history includes right foot surgery Timing/Duration: day(s) (symptoms for 5 days) Severity: moderate Modifying Factors: Improves With: other (patient is on elequis for dvt and pe) Associated Symptoms: No nausea, No vomiting, No abdominal pain, No shortness of breath, No heartburn, No diaphoresis, No cough, No chills, No chest pain, No fever, No headaches, No loss of appetite, No malaise, No rash, No syncope, No seizure Allergies/Adverse Reactions: No Known Drug Allergies Allergy (Verified 08/19/18 16:01) Home Medications: Allopurinol 100 mg [Zyloprim 100 mg] 1 tab PO DAILY 08/14/18 [History] Benazepril HCl 20 mg PO DAILY 08/14/18 [History] Fenofibrate Nanocrystallized [Fenofibrate] 145 mg PO DAILY 08/14/18 [History] Gabapentin 600 mg PO DAILY PRN 08/14/18 [History] Levothyroxine Sodium 50 mcg PO DAILY 08/14/18 [History] Hx Tetanus, Diphtheria Vaccination/Date Given: No Hx Influenza Vaccination/Date Given: No Hx Pneumococcal Vaccination/Date Given: No Immunizations Up to Date: Yes - Review of Systems Constitutional: No Fever, No Chills Eyes: No Symptoms Ears, Nose, & Throat: No Symptoms Respiratory: No Cough, No Dyspnea Cardiac: No Chest Pain, No Edema, No Syncope Abdominal/Gastrointestinal: No Abdominal Pain, No Nausea, No Vomiting, No Diarrhea Genitourinary Symptoms: No Dysuria Musculoskeletal: Other (swelling of lower legs) Skin: No Rash Neurological: No Dizziness, No Focal Weakness, No Sensory Changes Psychological: No Symptoms Endocrine: No Symptoms All Other Systems: Reviewed and Negative - Past Medical History Pertinent Past Medical History: Yes Neurological History: No Pertinent History ENT History: No Pertinent History Cardiac History: Hypertension Respiratory History: No Pertinent History, Other Endocrine Medical History: No Pertinent History Musculoskeletal History: No Pertinent History GI Medical History: No Pertinent History History: No Pertinent History Psycho-Social History: No Pertinent History Male Reproductive Disorders: No Pertinent History Other Medical History: HTN,DVT,PE - Past Surgical History Past Surgical History: Yes Neuro Surgical History: No Pertinent History Cardiac: No Pertinent History Respiratory: No Pertinent History Gastrointestinal: No Pertinent History Genitourinary: No Pertinent History Musculoskeletal: Orthopedic Surgery Male Surgical History: No Pertinent History Other Surgical History: RIGHT FOOT - Social History Smoking Status: Current every day smoker How long have you smoked: 15 years Exposure to second hand smoke: Yes Drug Use: narcotics Patient Lives Alone: No - Nursing Vital Signs Nursing Vital Signs: Initial Vital Signs Temperature 98.4 F 08/19/18 15:52 Pulse Rate 55 L 08/19/18 15:52 Respiratory Rate 16 08/19/18 15:52 Blood Pressure 160/67 08/19/18 15:52 O2 Sat by Pulse Oximetry 98 08/19/18 15:52 Pain Scale Pain Intensity 0 - Physical Exam SpO2: 98 - Course Nursing assessment & vital signs reviewed: Yes EKG Interpreted by Me: RATE (50 bpm), Sinus Ignacio, NORMAL AXIS, Other (EKG: Sinus bradycardia, 50 beats per minute, normal axis, no acute ST or T wave changes essentially normal EKG.) Ordered Tests: Active Orders 24 hr Category Date Time Status EKG-ER Only STAT Care 08/19/18 16:17 Active IV Insertion STAT Care 08/19/18 17:04 Active CBC W DIFF Stat Lab 08/19/18 17:12 Completed CMP Stat Lab 08/19/18 17:12 Completed NT PRO BNP Stat Lab 08/19/18 17:12 Received Medication Summary Generic Name Dose Route Start Last Admin Trade Name Freq PRN Reason Stop Dose Admin Furosemide 20 mg 08/19/18 18:00 08/19/18 17:28 Lasix 20 Mg PO 08/19/18 18:01 20 mg DAILY CRESENCIO Administration Discontinued Medications Generic Name Dose Route Start Last Admin Trade Name Evans PRN Reason Stop Dose Admin Furosemide 20 mg 08/19/18 17:03 08/19/18 17:10 Lasix 40 Mg/4 Ml IV 08/19/18 17:04 Not Given STAT ONE Lab/Rad Data: Laboratory Result Diagrams 08/19/18 17:12 08/19/18 17:12 Laboratory Results 08/19/18 08/19/18 Range/Units 17:12 17:12 WBC 5.6 (4.0-10.5) K/mm3 RBC 4.30 (4.1-5.6) M/mm3 Hgb 12.8 (12.5-18.0) gm/dl Hct 37.7 L (42-50) % MCV 87.7 (78-100) fl MCH 29.8 (26-32) pg MCHC 34.0 (32-36) g/dl RDW 13.8 (11.5-14.0) % Plt Count 170 (150-450) K/mm3 MPV 10.3 H (6-9.5) fl Gran % 56.5 (36.0-66.0) % Eos # (Auto) 0.18 (0-0.5) Absolute Lymphs (auto) 1.77 (1.0-4.6) Absolute Monos (auto) 0.46 (0.0-1.3) Lymphocytes % 31.4 (24.0-44.0) % Monocytes % 8.2 (0.0-12.0) % Eosinophils % 3.2 (0.00-5.0) % Basophils % 0.7 (0.0-0.4) % Absolute Granulocytes 3.18 (1.4-6.9) Basophils # 0.04 (0-0.4) Sodium 141 (137-145) mmol/L Potassium 4.0 (3.5-5.1) mmol/L Chloride 106 (98-107) mmol/L Carbon Dioxide 27 (22-30) mmol/L Anion Gap 12.4 (5-15) MEQ/L BUN 14 (9-20) mg/dL Creatinine 1.17 (0.66-1.25) mg/dL Estimated GFR > 60.0 ML/MIN Glucose 88 (74-106) mg/dL Calcium 9.3 (8.4-10.2) mg/dL Total Bilirubin 0.40 (0.2-1.3) mg/dL AST 23 (17-59) U/L ALT 18 (0-50) U/L Alkaline Phosphatase 54 (38-126) U/L Serum Total Protein 7.4 (6.3-8.2) g/dL Albumin 4.2 (3.5-5.0) g/dL - Progress Progress: improved Progress Note: 08/19/18 17:18 37-year-old white male recently diagnosed with pulmonary embolism and left lower leg DVT placed on elequis, arrives with complaint that he feels like he is having swelling in his lower legs which is increased. Patient does not appear to be in acute distress vitals are stable. He has recently just started the Elequis. On physical examination patient with mild edema to the lower extremities lungs are clear heart is bradycardic but regular vitals are stable. I contacted Dr. Welch who saw the patient in the hospital here on patient was referred to Dr. Webb. Who began the patient's elequis, she actually came down and saw the patient she is requested that the patient be given Lasix 20 mg orally. I have ordered CBC CMP and BMP at her request. she states she will see the patient tomorrow at 2 PM. - Departure Departure Disposition: Home Clinical Impression: Lower extremity edema, hx recent pulmonary embolism, hx recent dvt Condition: Fair Critical Care Time: No Referrals: TRUE MARTÍNEZ DO [Primary Care Provider] - Additional Instructions: Return home. Continue your current medications including your Elequis as prescribed by your family doctor/sharepoint architect. Followup with Dr. Welch tomorrow at 2 PM. Return for acute distress severe symptoms or for any problems.
[2018-08-19 16:51] VITALS: BP 117/64; PULSE 62
[2018-08-19] MEDS ORDERED: Lasix 40 MG/4 ML IV ONE (17:03)
[2018-08-19 17:14] LABS: BASOPHIL % 0.7 % (0.0-0.4); Basophil (Absolute #) 0.04 (0-0.4); Eosinophil % 3.2 % (0.00-5.0); Eosinophil (Absolute #) 0.18 (0-0.5); Granulocyte Absolute (ANC) 3.18 (1.4-6.9); Granulocytes % 56.5 % (36.0-66.0); Hematocrit 37.7 % (42-50); Hemoglobin 12.8 gm/dl (12.5-18.0); Lymphocyte (Absolute #) 1.77 (1.0-4.6); Lymphocytes % 31.4 % (24.0-44.0); Mean Cell Volume 87.7 fl (78-100); Mean Corpuscular Hemoglobin 29.8 pg (26-32); Mean Platelet Volume 10.3 fl (6-9.5); Monocytes % 8.2 % (0.0-12.0); Platelet Count 170 K/mm3 (150-450); Red Cell Distribution Width 13.8 % (11.5-14.0); White Blood Count 5.6 K/mm3 (4.0-10.5)
[2018-08-19 17:26] LABS: ALBUMIN 4.2 g/dL (3.5-5.0); ALKALINE PHOSPHATASE 54 U/L (38-126); ANION GAP 12.4 MEQ/L (5-15); BLOOD UREA NITROGEN 14 mg/dL (9-20); CHLORIDE 106 mmol/L (98-107); Calcium 9.3 mg/dL (8.4-10.2); Carbon Dioxide 27 mmol/L (22-30); Creatinine 1 1.17 mg/dL (0.66-1.25); Glucose 88 mg/dL (74-106); SGOT/AST 23 U/L (17-59); SGPT/ALT 18 U/L (0-50); SODIUM 141 mmol/L (137-145); Total Protein 7.4 g/dL (6.3-8.2)
[2018-08-19] MEDS: LASIX 20 MG PO SCH (17:28)
== END 2018-08-19 17:56 | disposition home or self-care (01) ==
LOC: ED 15:47
DX: R60.0 Localized edema (principal); Z86.711 Personal history of pulmonary embolism; Z86.718 Personal history of other venous thrombosis and embolism; Z79.01 Long term (current) use of anticoagulants; I10 Essential (primary) hypertension; Z79.899 Other long term (current) drug therapy
CPT/HCPCS: 36415; 80053; 83880; 85025; 93005; 99284; A9270-GY

== ENCOUNTER 2018-08-28 20:08 | Emergency (ER) | payer OTHER ==
[2018-08-28 20:41] LABS: BASOPHIL % 0.4 % (0.0-0.4); Basophil (Absolute #) 0.03 (0-0.4); Eosinophil % 5.1 % (0.00-5.0); Eosinophil (Absolute #) 0.38 (0-0.5); Granulocyte Absolute (ANC) 4.94 (1.4-6.9); Granulocytes % 66.3 % (36.0-66.0); Hematocrit 41.1 % (42-50); Lymphocyte (Absolute #) 1.45 (1.0-4.6); Lymphocytes % 19.4 % (24.0-44.0); Mean Cell Volume 86.5 fl (78-100); Mean Corpuscular Hemoglobin 29.5 pg (26-32); Mean Corpuscular Hgb Concent. 34.1 g/dl (32-36); Mean Platelet Volume 9.9 fl (6-9.5); Monocyte (Absolute #) 0.66 (0.0-1.3); Monocytes % 8.8 % (0.0-12.0); Platelet Count 204 K/mm3 (150-450); Red Blood Count 4.75 M/mm3 (4.1-5.6); Red Cell Distribution Width 14.4 % (11.5-14.0); White Blood Count 7.5 K/mm3 (4.0-10.5)
--- NOTE | 2018-08-28 20:41 | ERPHSYRPT ---
- History of Present Illness Time Seen by Provider: 08/28/18 20:28 Source: patient Exam Limitations: no limitations Patient Subjective Stated Complaint: Left leg swelling/chest discomfort Triage Nursing Assessment: Patient ambulated back to ED and transferred self to bed. Patient complains of left lower leg swelling that started today. Patient stated he started having chest discomfort on the drive here, but just told RN. Patient states chest pain is intermittent stabbing. Patient's lungs clear a/p neyda. Heart tones audible. Patient right leg noted to be red. Patient's left leg noted to be slightly swollen with small open areas to top of left leg with clear drainage. Pulses present. Negative rocael's sign in neyda legs. Patient denies SOB. Patient states he was treated for DVT and PE two weeks ago. Physician History: This is a 37-year-old white male with history of known pulmonary embolism and left leg DVT which was diagnosed on August 14, 2018 who states he is on eloquent 5 mg orally twice a day. He arrives with complaint of swelling in his left leg he feels like his right leg is red. He is having some drainage from his left anterior leg. He states this has been going on all day he states that he did scratch his left anterior leg earlier. He states on the way to the hospital he was having some sharp left anterior chest pain is not affected with breathing no shortness of breath. Past medical history includes high blood pressure, DVT, PE, gout, hyperlipidemia. Patient apparently receives methadone. Past surgical history includes right foot surgery Timing/Duration: today Severity: moderate Modifying Factors: Improves With: other (patient was scratching his left anterior leg at some time) Associated Symptoms: chest pain (sharp chest pains left chestx2 hours not affected with breathing), No nausea, No vomiting, No abdominal pain, No shortness of breath, No heartburn, No diaphoresis, No cough, No chills, No fever , No headaches, No loss of appetite, No malaise, No rash, No syncope, No seizure , No weakness Allergies/Adverse Reactions: No Known Drug Allergies Allergy (Verified 08/28/18 20:15) Home Medications: Allopurinol 100 mg [Zyloprim 100 mg] 1 tab PO DAILY 08/14/18 [History] Benazepril HCl 20 mg PO DAILY 08/14/18 [History] Fenofibrate Nanocrystallized [Fenofibrate] 145 mg PO DAILY 08/14/18 [History] Gabapentin 600 mg PO DAILY PRN 08/14/18 [History] Levothyroxine Sodium 50 mcg PO DAILY 08/14/18 [History] Hx Tetanus, Diphtheria Vaccination/Date Given: No Hx Influenza Vaccination/Date Given: No Hx Pneumococcal Vaccination/Date Given: No Immunizations Up to Date: Yes - Review of Systems Constitutional: No Fever, No Chills Eyes: No Symptoms Ears, Nose, & Throat: No Symptoms Respiratory: No Cough, No Dyspnea Cardiac: Chest Pain (sharp chest pain left anterior chest), Edema Abdominal/Gastrointestinal: No Abdominal Pain, No Nausea, No Vomiting, No Diarrhea Genitourinary Symptoms: No Dysuria Musculoskeletal: Other (swelling left leg) Skin: Other (patient states right leg erythematous, patient with drainage from left leg where he has scratched to the area) Neurological: No Dizziness, No Focal Weakness, No Sensory Changes Psychological: No Symptoms Endocrine: No Symptoms All Other Systems: Reviewed and Negative - Past Medical History Pertinent Past Medical History: Yes Neurological History: No Pertinent History ENT History: No Pertinent History Cardiac History: Hypertension Respiratory History: No Pertinent History, Other Endocrine Medical History: No Pertinent History Musculoskeletal History: No Pertinent History GI Medical History: No Pertinent History History: No Pertinent History Psycho-Social History: No Pertinent History Male Reproductive Disorders: No Pertinent History Other Medical History: HTN,DVT,PE - Past Surgical History Past Surgical History: Yes Neuro Surgical History: No Pertinent History Cardiac: No Pertinent History Respiratory: No Pertinent History Gastrointestinal: No Pertinent History Genitourinary: No Pertinent History Musculoskeletal: Orthopedic Surgery Male Surgical History: No Pertinent History Other Surgical History: RIGHT FOOT - Social History Smoking Status: Current every day smoker How long have you smoked: years Exposure to second hand smoke: Yes Drug Use: narcotics Patient Lives Alone: No - Nursing Vital Signs Nursing Vital Signs: Initial Vital Signs Temperature 98.5 F 08/28/18 20:15 Pulse Rate 84 08/28/18 20:15 Respiratory Rate 18 08/28/18 20:15 Blood Pressure 137/74 08/28/18 20:15 O2 Sat by Pulse Oximetry 99 08/28/18 20:15 Pain Scale Pain Intensity 0 - Physical Exam General Appearance: no apparent distress, alert Eye Exam: PERRL/EOMI, eyes nml inspection Ears, Nose, Throat Exam: normal ENT inspection, TMs normal, pharynx normal, moist mucous membranes Neck Exam: normal inspection, non-tender, supple, full range of motion Respiratory Exam: normal breath sounds, lungs clear, No respiratory distress Cardiovascular Exam: regular rate/rhythm, normal heart sounds, normal peripheral pulses, capillary refill <2 sec Gastrointestinal/Abdomen Exam: soft, normal bowel sounds, No tenderness, No mass Back Exam: normal inspection, normal range of motion, No CVA tenderness, No vertebral tenderness Extremity Exam: other (venous stasis changes left anterior distal cary several abrasions with drainage anteriorly area is not hot mild edema left lower extremity) Neurologic Exam: alert, oriented x 3, cooperative, normal mood/affect, nml cerebellar function, nml station & gait, sensation nml, No motor deficits Skin Exam: warm, dry, other (stasis dermatitis left distal anterior cary with several abrasions in this area some drainage), No rash Lymphatic Exam: No adenopathy SpO2 Interpretation: normal (995) SpO2: 99 - Course Nursing assessment & vital signs reviewed: Yes EKG Interpreted by Me: RATE (73 bpm), Sinus Rhythm, NORMAL AXIS, Other (EKG: Sinus rhythm, 73 beats per minute, normal axis, no acute ST or T wave changes, normal EKG compared to August 14, 2018) - Radiology Exams Chest X-ray Interpretation: Interpreted by me (no acute disease process noted) Ordered Tests: Active Orders 24 hr Category Date Time Status [employer] STAT Care 08/28/18 20:34 Active EKG-ER Only STAT Care 08/28/18 20:33 Active IV Insertion STAT Care 08/28/18 20:33 Active Pulse Oximetry (ED) STAT Care 08/28/18 20:33 Active Wound Care STAT Care 08/28/18 20:47 Active CHEST 1 VIEW (PORTABLE) Stat Exams 08/28/18 20:34 Taken BLOOD CULTURE Stat Lab 08/28/18 21:06 Received CBC W DIFF Stat Lab 08/28/18 20:30 Completed CMP Stat Lab 08/28/18 20:30 Completed CULTURE,WOUND Stat Lab 08/28/18 20:48 Ordered D-DIMER QUANTITATION Stat Lab 08/28/18 20:30 Completed NT PRO BNP Stat Lab 08/28/18 20:30 Completed PROTIME WITH INR Stat Lab 08/28/18 20:30 Completed PTT Stat Lab 08/28/18 20:30 Completed TROPONIN Q3H Lab 08/28/18 20:30 Completed TROPONIN Q3H Lab 08/28/18 23:30 Completed TROPONIN Q3H Lab 08/29/18 02:45 Ordered TROPONIN Q3H Lab 08/29/18 05:45 Ordered TROPONIN Q3H Lab 08/29/18 08:45 Ordered Medication Summary Discontinued Medications Generic Name Dose Route Start Last Admin Trade Name Freq PRN Reason Stop Dose Admin Bacitracin Zinc 0.9 gm 08/28/18 20:47 08/28/18 20:51 Baciguent Packet TP 08/28/18 20:48 0.9 gm STAT ONE Administration Bacitracin Zinc Confirm 08/28/18 20:51 Baciguent Packet Administered 08/28/18 20:52 Dose 1 gm .ROUTE .STK-MED ONE Cephalexin HCl 500 mg 08/28/18 21:21 08/28/18 21:25 Keflex 250 Mg/5 Ml Susp PO 08/28/18 21:22 Not Given STAT ONE Cephalexin HCl Confirm 08/28/18 21:22 Keflex 500 Mg Administered 08/28/18 21:23 Dose 500 mg .ROUTE .STK-MED ONE Cephalexin HCl 500 mg 08/28/18 21:24 08/28/18 21:25 Keflex 500 Mg PO 08/28/18 21:25 500 mg STAT ONE Administration Lab/Rad Data: Laboratory Result Diagrams 08/28/18 20:30 08/28/18 20:30 Laboratory Results 08/28/18 08/28/18 08/28/18 Range/Units 23:30 20:30 20:30 WBC (4.0-10.5) K/mm3 RBC (4.1-5.6) M/mm3 Hgb (12.5-18.0) gm/dl Hct (42-50) % MCV (78-100) fl MCH (26-32) pg MCHC (32-36) g/dl RDW (11.5-14.0) % Plt Count (150-450) K/mm3 MPV (6-9.5) fl Gran % (36.0-66.0) % Eos # (Auto) (0-0.5) Absolute Lymphs (auto) (1.0-4.6) Absolute Monos (auto) (0.0-1.3) Lymphocytes % (24.0-44.0) % Monocytes % (0.0-12.0) % Eosinophils % (0.00-5.0) % Basophils % (0.0-0.4) % Absolute Granulocytes (1.4-6.9) Basophils # (0-0.4) PT 15.4 H (8.83-12.87) SECONDS INR 1.35 (0.8-3.0) APTT 35.1 (24.1-36.1) SECONDS D-Dimer 564 H* (215-500) ng/mL Sodium (137-145) mmol/L Potassium (3.5-5.1) mmol/L Chloride (98-107) mmol/L Carbon Dioxide (22-30) mmol/L Anion Gap (5-15) MEQ/L BUN (9-20) mg/dL Creatinine (0.66-1.25) mg/dL Estimated GFR ML/MIN Glucose (74-106) mg/dL Calcium (8.4-10.2) mg/dL Total Bilirubin (0.2-1.3) mg/dL AST (17-59) U/L ALT (0-50) U/L Alkaline Phosphatase (38-126) U/L Troponin I < 0.012 < 0.012 (0.000-0.034) ng/mL NT-Pro-B Natriuret Pep (0-450) pg/mL Serum Total Protein (6.3-8.2) g/dL Albumin (3.5-5.0) g/dL 08/28/18 08/28/18 Range/Units 20:30 20:30 WBC 7.5 (4.0-10.5) K/mm3 RBC 4.75 (4.1-5.6) M/mm3 Hgb 14.0 (12.5-18.0) gm/dl Hct 41.1 L (42-50) % MCV 86.5 (78-100) fl MCH 29.5 (26-32) pg MCHC 34.1 (32-36) g/dl RDW 14.4 H (11.5-14.0) % Plt Count 204 (150-450) K/mm3 MPV 9.9 H (6-9.5) fl Gran % 66.3 H (36.0-66.0) % Eos # (Auto) 0.38 (0-0.5) Absolute Lymphs (auto) 1.45 (1.0-4.6) Absolute Monos (auto) 0.66 (0.0-1.3) Lymphocytes % 19.4 L (24.0-44.0) % Monocytes % 8.8 (0.0-12.0) % Eosinophils % 5.1 H (0.00-5.0) % Basophils % 0.4 (0.0-0.4) % Absolute Granulocytes 4.94 (1.4-6.9) Basophils # 0.03 (0-0.4) PT (8.83-12.87) SECONDS INR (0.8-3.0) APTT (24.1-36.1) SECONDS D-Dimer (215-500) ng/mL Sodium 139 (137-145) mmol/L Potassium 3.5 (3.5-5.1) mmol/L Chloride 99 (98-107) mmol/L Carbon Dioxide 27 (22-30) mmol/L Anion Gap 16.8 H (5-15) MEQ/L BUN 21 H (9-20) mg/dL Creatinine 1.55 H (0.66-1.25) mg/dL Estimated GFR 53.3 ML/MIN Glucose 87 (74-106) mg/dL Calcium 10.1 (8.4-10.2) mg/dL Total Bilirubin 0.90 (0.2-1.3) mg/dL AST 27 (17-59) U/L ALT 21 (0-50) U/L Alkaline Phosphatase 59 (38-126) U/L Troponin I (0.000-0.034) ng/mL NT-Pro-B Natriuret Pep 29.3 (0-450) pg/mL Serum Total Protein 8.4 H (6.3-8.2) g/dL Albumin 4.8 (3.5-5.0) g/dL - Progress Progress: improved Progress Note: 08/28/18 20:42 This is a 37-year-old white male who has a known history of DVT in his left popliteal vein also with a known history of pulmonary embolisms which were diagnosed on August 14, 2016. Patient has been being treated with Elequis, and he states he is now on 5 mg twice a day. He states that today he noticed he was having some swelling in his left lower leg he also has some weeping in his left lower leg on exam he has some stasis dermatitis of the left lower leg and he has some abrasions he scratching the area areas erythematous but is not hot. Patient does state that this is been bothering him all day today he states that he was on the way to the hospital and started having some left anterior lateral chest pain which is sharp not associated with breathing he has no shortness of breath he has no nausea no vomiting no fevers. Patient has been recently seen in the emergency room for similar condition on August 19, 2018 patient was placed on a "water pill" by his family secondary to this. The patient also has a history of a methadone clinic and will avoid narcotic analgesia on this patient he does not appear to be in acute distress or severe symptoms. He does state he notices symptoms while at work. Will go ahead and obtain CBC CMP d-dimer PT PTT BMP chest x-ray. Patient's EKG normal sinus rhythm 73 beats per minute normal axis normal EKG. Will go ahead and obtain wound cultures and blood cultures on this patient 08/28/18 21:22 Patient's labs and d-dimer is 564 which is markedly improved from [id number] which was obtained on August 14, 2018 Patient was EKG normal sinus rhythm no acute ST or T wave changes Patient's chest x-ray unremarkable no acute disease process patient's chemistry sodium 139 potassium 3.5 chloride 99 bicarbonate 27 BUN 21 creatinine 1.55 glucose is 87 troponin is less than 0.012 BNP is 29.3 CBC White blood cell 7.5 hemoglobin 14 hematocrit 41.1 platelets 204 Patient is in no acute distress Patient's abrasion on his left leg has been cultured. I've discussed the patient's case with Dr. carrion. Had initially planned to place patient on Bactrim however patient apparently on benazepril and can interact with Bactrim potentially leading to elevated potassium levels therefore we'll place patient on Keflex 500 mg orally every 6 hours for 7 days. Will repeat patient's troponin. . Patient with atypical sharp chest pain patient is already on Elequis, will avoid aspirin at this time. I discussed this with Dr. Welch. Patient's legs appear to be markedly improved with elevation of both legs. Will await repeat troponin anticipate discharge. Repeat troponin within normal limits will discharge patient patient in no distress at this time. 08/28/18 21:25 08/28/18 21:29 08/29/18 00:11 - Departure Departure Disposition: Home Clinical Impression: Lower extremity edema, Abrasion, left lower leg, initial encounter, early cellulitis left leg, History of DVT (deep vein thrombosis), History of pulmonary embolism, Chest pain, non-cardiac Condition: Fair Critical Care Time: No Referrals: TRUE MARTÍNEZ DO [Primary Care Provider] - Additional Instructions: Return home. Continue Elequis as prescribed by your family Dr. Thompson as prescribed. Elevate legs 24-48 hours. Followup with your family . Return for acute distress or for severe symptoms. Prescriptions: Cephalexin Mh 500 mg [Keflex 500 mg] 500 mg PO Q6H #28 capsule
[2018-08-28] MEDS ORDERED: BACIGUENT PACKET TP ONE (20:47)
[2018-08-28 20:49] LABS: INR 1.35 (0.8-3.0); PROTIME 15.4 SECONDS (8.83-12.87)
[2018-08-28 20:51] LABS: PTT 35.1 SECONDS (24.1-36.1)
[2018-08-28] MEDS ORDERED: BACIGUENT PACKET ONE (20:51)
[2018-08-28 21:02] LABS: ALBUMIN 4.8 g/dL (3.5-5.0); ANION GAP 16.8 MEQ/L (5-15); BILIRUBIN,TOTAL 0.9 mg/dL (0.2-1.3); Calcium 10.1 mg/dL (8.4-10.2); Creatinine 1 1.55 mg/dL (0.66-1.25); NT PRO BNP 29.3 pg/mL (0-450); Potassium 3.5 mmol/L (3.5-5.1); Total Protein 8.4 g/dL (6.3-8.2)
[2018-08-28] MEDS ORDERED: KEFLEX 250 MG/5 ML SUSP PO ONE (21:21)
[2018-08-28] MEDS ORDERED: KEFLEX 500 MG ONE (21:22)
[2018-08-28] MEDS ORDERED: KEFLEX 500 MG PO ONE (21:24)
[2018-08-28 23:57] VITALS: BP 95/59; PULSE 80
[2018-08-29 00:14] VITALS: O2SAT 99
--- NOTE | 2018-08-29 08:40 | XRAY ---
Indication: Chest pain. Comparison: August 14, 2018. Portable chest is clear again with left base calcified granuloma. Heart is not enlarged. Bony thorax intact. No new/acute findings. Impression: Nonacute chest. Again evidence for old granulomatous disease.
== END 2018-08-29 00:29 | disposition home or self-care (01) ==
LOC: ED 20:08
DX: R60.0 Localized edema (principal); S80.812A Abrasion, left lower leg, initial encounter; L03.116 Cellulitis of left lower limb; Z86.718 Personal history of other venous thrombosis and embolism; Z86.711 Personal history of pulmonary embolism; R07.89 Other chest pain; Z79.01 Long term (current) use of anticoagulants; I10 Essential (primary) hypertension; M10.9 Gout, unspecified; E78.5 Hyperlipidemia, unspecified; Z79.899 Other long term (current) drug therapy
CPT/HCPCS: 36000; 36415; 71045; 80053; 83880; 84484; 85025; 85379; 85610; 85730; 87040; 87070; 87077; 87186; 93005; 93041; 94760; 99284; A9270-GY

== ENCOUNTER 2019-07-13 22:25 | Emergency (ER) | payer OTHER ==
[2019-07-13] MEDS ORDERED: DELTASONE 20 MG PO ONE (22:59)
[2019-07-13] MEDS ORDERED: DUONEB 0.5-3 MG/3 ml Neb IH ONE ×2 (22:59→23:04)
[2019-07-13] MEDS ORDERED: DELTASONE 20 MG ONE ×2 (23:02→23:37)
--- NOTE | 2019-07-13 23:04 | ERPHSYRPT ---
- History of Present Illness Time Seen by Provider: 07/13/19 22:50 Source: patient Exam Limitations: no limitations Patient Subjective Stated Complaint: SOB and bilat foot swelling Triage Nursing Assessment: pt to ED c/o SOB x 1 day and bilateral lower extremity swelling x few days. denies pain at this time, no fever, cough, or other COVID related sx. noted wheezing on inspiration on auscultation. pt on room air. heart sounds clear. ambulatory to room per self. A&Ox3. communicates appropriately. Physician History: 38 years old male with history of DVT/PE on Eliquis, hypertension, tobacco abuse presented in the ER with chief complaint of bilateral lower extremity swelling for last few days with progressive worsening and this evening started to have some shortness of breath and chest pressure and tightness. Denies any significant aggravating or relieving factors. Has chronic smoker cough which is not any worse than usual. Denies any fever or chills. He has been wheezing more than usual. Patient has been taking Eliquis regularly and did not miss a dose. Timing/Duration: day(s), gradual onset Activities at Onset: activity Severity of Dyspnea-Max: moderate Severity of Dyspnea-Current: mild Possible Cause: occasional episodes Associated Symptoms: chest pain/discomfort, edema, ankle swelling, leg swelling , No cough, No painful breathing, No productive cough Allergies/Adverse Reactions: No Known Drug Allergies Allergy (Verified 08/28/18 20:15) Home Medications: Allopurinol 100 mg [Zyloprim 100 mg] 1 tab PO DAILY 08/14/18 [History] Benazepril HCl 20 mg PO DAILY 08/14/18 [History] Fenofibrate Nanocrystallized [Fenofibrate] 145 mg PO DAILY 08/14/18 [History] Gabapentin 600 mg PO DAILY PRN 08/14/18 [History] Levothyroxine Sodium 50 mcg PO DAILY 08/14/18 [History] Hx Tetanus, Diphtheria Vaccination/Date Given: Yes Hx Influenza Vaccination/Date Given: Yes Hx Pneumococcal Vaccination/Date Given: No Travel Risk - International Travel Have you traveled outside of the country in past 3 weeks: No Have you or anyone close to you been diagnosed with or: No Do your reside in a community with a known COVID-19 case?: Yes If Yes where:: [place] - Coronavirus Screening Has patient experienced Coronavirus symptoms: No Symptoms experienced: respiratory symptoms (i.e.Cought,shortness of breath) Date of respiratory symptoms onset:: 07/13/19 - Review of Systems Constitutional: No Symptoms Eyes: No Symptoms Ears, Nose, & Throat: No Symptoms Respiratory: Cough, Dyspnea, Wheezing Cardiac: Chest Pain, Edema Abdominal/Gastrointestinal: No Symptoms Genitourinary Symptoms: No Symptoms Musculoskeletal: No Symptoms Skin: No Symptoms Neurological: No Symptoms Psychological: No Symptoms Endocrine: No Symptoms Hematologic/Lymphatic: No Symptoms Immunological/Allergic: No Symptoms - Past Medical History Pertinent Past Medical History: Yes Neurological History: No Pertinent History ENT History: No Pertinent History Cardiac History: Hypertension Respiratory History: No Pertinent History, Other Endocrine Medical History: No Pertinent History Musculoskeletal History: No Pertinent History GI Medical History: No Pertinent History History: No Pertinent History Psycho-Social History: No Pertinent History Male Reproductive Disorders: No Pertinent History Other Medical History: HTN,DVT,PE - Past Surgical History Past Surgical History: Yes Neuro Surgical History: No Pertinent History Cardiac: No Pertinent History Respiratory: No Pertinent History Gastrointestinal: No Pertinent History Genitourinary: No Pertinent History Musculoskeletal: Orthopedic Surgery Male Surgical History: No Pertinent History Other Surgical History: RIGHT FOOT - Social History Smoking Status: Current every day smoker How long have you smoked: years Exposure to second hand smoke: Yes Drug Use: none Patient Lives Alone: No - Nursing Vital Signs Nursing Vital Signs: Initial Vital Signs Temperature 98.0 F 07/13/19 22:34 Pulse Rate 59 L 07/13/19 22:34 Respiratory Rate 20 07/13/19 22:34 Blood Pressure 179/91 07/13/19 22:34 O2 Sat by Pulse Oximetry 99 07/13/19 22:34 Pain Scale Pain Intensity 0 - Physical Exam General Appearance: no apparent distress Eye Exam: PERRL/EOMI, eyes nml inspection Ears, Nose, Throat Exam: hearing grossly normal, normal ENT inspection, normal pharynx Neck Exam: normal inspection, non-tender, supple, full range of motion Respiratory Exam: wheezing, No chest tenderness, No accessory muscle use, No crackles/rales Cardiovascular/Chest Exam: normal heart sounds, regular rate/rhythm Abdominal/Gastrointestinal Exam: soft, normal bowel sounds, No tenderness Extremity Exam: non-tender, swelling (one plus bilateral pitting edema) Neurologic Exam: alert, oriented x 3, cooperative Skin Exam: normal color, warm, dry SpO2 Interpretation: normal SpO2: 99 O2 Delivery: Room Air - Course Nursing assessment & vital signs reviewed: Yes EKG Interpreted by Me: RATE, Sinus Rhythm, NORMAL AXIS, NORMAL INTERVALS, NORMAL QRS Ordered Tests: Active Orders 24 hr Category Date Time Status Blackjack Supervisor STAT Care 07/13/19 22:59 Active EKG-ER Only STAT Care 07/13/19 22:59 Active IV Insertion STAT Care 07/13/19 22:59 Active Isolation, Initiate & Maintain Q12H Care 07/13/19 22:51 Active CHEST 2 VIEWS (PA AND LAT) Stat Exams 07/13/19 22:59 Taken CBC W DIFF Stat Lab 07/13/19 23:11 Completed CMP Stat Lab 07/13/19 23:11 Completed Lactic Acid Stat Lab 07/13/19 23:10 Completed NT PRO BNP Stat Lab 07/13/19 23:11 Completed TROPONIN Q3H Lab 07/13/19 23:11 Completed TROPONIN Q3H Lab 07/14/19 02:00 Ordered TROPONIN Q3H Lab 07/14/19 05:00 Ordered TROPONIN Q3H Lab 07/14/19 08:00 Ordered TROPONIN Q3H Lab 07/14/19 11:00 Ordered Peak Expiratory Flow Rate ONCE RT 07/13/19 23:38 Active Respiratory Therapy Assessment DAILY RT 07/13/19 23:38 Active Medication Summary Discontinued Medications Generic Name Dose Route Start Last Admin Trade Name Freq PRN Reason Stop Dose Admin Albuterol/Ipratropium 3 ml 07/13/19 22:59 07/13/19 23:08 Duoneb 0.5-3 Mg/3 Ml Neb IH 07/13/19 23:00 3 ml STAT ONE Administration Albuterol/Ipratropium Confirm 07/13/19 23:04 Duoneb 0.5-3 Mg/3 Ml Neb Administered 07/13/19 23:05 Dose 3 ml IH .STK-MED ONE Prednisone 60 mg 07/13/19 22:59 07/13/19 23:38 Deltasone 20 Mg PO 07/13/19 23:00 60 mg STAT ONE Administration Prednisone Confirm 07/13/19 23:02 Deltasone 20 Mg Administered 07/13/19 23:03 Dose 60 mg .ROUTE .STK-MED ONE Prednisone Confirm 07/13/19 23:37 Deltasone 20 Mg Administered 07/13/19 23:38 Dose 60 mg .ROUTE .STK-MED ONE Lab/Rad Data: Laboratory Result Diagrams 07/13/19 23:11 07/13/19 23:11 Laboratory Results 07/13/19 07/13/19 07/13/19 Range/Units 23:11 23:11 23:11 WBC 7.3 (4.0-10.5) K/mm3 RBC 5.27 (4.1-5.6) M/mm3 Hgb 15.2 (12.5-18.0) gm/dl Hct 45.1 (42-50) % MCV 85.6 (78-100) fl MCH 28.8 (26-32) pg MCHC 33.7 (32-36) g/dl RDW 14.5 H (11.5-14.0) % Plt Count 183 (150-450) K/mm3 MPV 9.7 (7.5-11.0) fl Gran % 58.1 (36.0-66.0) % Eos # (Auto) 0.13 (0-0.5) Absolute Lymphs (auto) 2.20 (1.0-4.6) Absolute Monos (auto) 0.69 (0.0-1.3) Lymphocytes % 30.3 (24.0-44.0) % Monocytes % 9.5 (0.0-12.0) % Eosinophils % 1.8 (0.00-5.0) % Basophils % 0.3 (0.0-0.4) % Absolute Granulocytes 4.22 (1.4-6.9) Basophils # 0.02 (0-0.4) Sodium 142 (137-145) mmol/L Potassium 3.7 (3.5-5.1) mmol/L Chloride 105 (98-107) mmol/L Carbon Dioxide 27 (22-30) mmol/L Anion Gap 13.1 (5-15) MEQ/L BUN 11 (9-20) mg/dL Creatinine 0.72 (0.66-1.25) mg/dL Estimated GFR > 60.0 ML/MIN Glucose 107 H (74-106) mg/dL Lactic Acid (0.4-2.0) Calcium 9.2 (8.4-10.2) mg/dL Total Bilirubin 0.60 (0.2-1.3) mg/dL AST 36 (17-59) U/L ALT 33 (0-50) U/L Alkaline Phosphatase 98 (38-126) U/L Troponin I < 0.012 (0.000-0.034) ng/mL NT-Pro-B Natriuret Pep 103 (0-450) pg/mL Serum Total Protein 7.9 (6.3-8.2) g/dL Albumin 4.3 (3.5-5.0) g/dL 07/13/19 Range/Units 23:10 WBC (4.0-10.5) K/mm3 RBC (4.1-5.6) M/mm3 Hgb (12.5-18.0) gm/dl Hct (42-50) % MCV (78-100) fl MCH (26-32) pg MCHC (32-36) g/dl RDW (11.5-14.0) % Plt Count (150-450) K/mm3 MPV (7.5-11.0) fl Gran % (36.0-66.0) % Eos # (Auto) (0-0.5) Absolute Lymphs (auto) (1.0-4.6) Absolute Monos (auto) (0.0-1.3) Lymphocytes % (24.0-44.0) % Monocytes % (0.0-12.0) % Eosinophils % (0.00-5.0) % Basophils % (0.0-0.4) % Absolute Granulocytes (1.4-6.9) Basophils # (0-0.4) Sodium (137-145) mmol/L Potassium (3.5-5.1) mmol/L Chloride (98-107) mmol/L Carbon Dioxide (22-30) mmol/L Anion Gap (5-15) MEQ/L BUN (9-20) mg/dL Creatinine (0.66-1.25) mg/dL Estimated GFR ML/MIN Glucose (74-106) mg/dL Lactic Acid 1.5 (0.4-2.0) Calcium (8.4-10.2) mg/dL Total Bilirubin (0.2-1.3) mg/dL AST (17-59) U/L ALT (0-50) U/L Alkaline Phosphatase (38-126) U/L Troponin I (0.000-0.034) ng/mL NT-Pro-B Natriuret Pep (0-450) pg/mL Serum Total Protein (6.3-8.2) g/dL Albumin (3.5-5.0) g/dL - Progress Progress: re-examined Air Movement: good Progress Note: 07/14/19 00:11 Years old is evaluated for lower extremity swelling and shortness of breath. Patient is wheezing on presentation, given steroid and breathing treatment, on reevaluation breathing is much better. Chest x-ray did not show focal consolidation or pulmonary edema. EKG showed normal sinus rhythm with no acute ischemic changes. Negative initial troponins. Unremarkable chemistries. Although he does have bilateral lower extremity swelling with pitting edema, I would place him on a short course of Lasix to go home. No signs of cellulitis. Patient has been taking Eliquis regularly and low suspicion for DVT or PE. I believe patient has some element of COPD exacerbation/bronchitis and will treat with inhaler and steroids along with counseling about decrease smoking. Recommended outpatient follow-up. At this point I do not think patient needs any further work-up in the ER and is stable for discharge. Blood Culture(s) Obtained: No Antibiotics given: No Counseled pt/family regarding: lab results, diagnosis, need for follow-up, rad results, smoking cessation - Departure Departure Disposition: Home Clinical Impression: COPD (chronic obstructive pulmonary disease) with acute bronchitis, Pedal edema Condition: Stable Critical Care Time: No Referrals: TRUE MARTÍNEZ DO [Primary Care Provider] - (1-2 days for re evaluation ) Instructions: Chronic Obstructive Pulmonary Disease, Exacerbation of COPD (DC) Additional Instructions: Non-smoking. Follow-up with primary care for reevaluation. Return to ER for worsening lower extremity swelling, shortness of breath, palpitations, chest pain, fever or chills. Prescriptions: Albuterol 8 gm Mdi Hfa [Ventolin Hfa MDI] 8 gm IH Q4H #1 hfa.aer.ad Furosemide 20 mg [Lasix 20 mg] 20 mg PO DAILY #5 tablet Prednisone 50 mg PO DAILY #5 tablet
[2019-07-13 23:14] LABS: Absolute Neutrophil Ct (ANC) 4.22 (1.4-6.9); BASOPHIL % 0.3 % (0.0-0.4); Basophil (Absolute #) 0.02 (0-0.4); Eosinophil % 1.8 % (0.00-5.0); Eosinophil (Absolute #) 0.13 (0-0.5); Hematocrit 45.1 % (42-50); Hemoglobin 15.2 gm/dl (12.5-18.0); Lymphocytes % 30.3 % (24.0-44.0); Mean Cell Volume 85.6 fl (78-100); Mean Corpuscular Hemoglobin 28.8 pg (26-32); Mean Corpuscular Hgb Concent. 33.7 g/dl (32-36); Mean Platelet Volume 9.7 fl (7.5-11.0); Monocyte (Absolute #) 0.69 (0.0-1.3); Monocytes % 9.5 % (0.0-12.0); Neutrophil % 58.1 % (36.0-66.0); Platelet Count 183 K/mm3 (150-450); Red Blood Count 5.27 M/mm3 (4.1-5.6); Red Cell Distribution Width 14.5 % (11.5-14.0); White Blood Count 7.3 K/mm3 (4.0-10.5)
[2019-07-13 23:33] LABS: ALBUMIN 4.3 g/dL (3.5-5.0); ALKALINE PHOSPHATASE 98 U/L (38-126); ANION GAP 13.1 MEQ/L (5-15); BLOOD UREA NITROGEN 11 mg/dL (9-20); CHLORIDE 105 mmol/L (98-107); Calcium 9.2 mg/dL (8.4-10.2); Carbon Dioxide 27 mmol/L (22-30); Creatinine 1 0.72 mg/dL (0.66-1.25); Glucose 107 mg/dL (74-106); NT PRO BNP 103 pg/mL (0-450); Potassium 3.7 mmol/L (3.5-5.1); SGOT/AST 36 U/L (17-59); SGPT/ALT 33 U/L (0-50); SODIUM 142 mmol/L (137-145); Total Protein 7.9 g/dL (6.3-8.2)
[2019-07-14 00:29] VITALS: BP 124/66; PULSE 54; O2SAT 98
--- NOTE | 2019-07-14 08:30 | XRAY ---
Indication: Lower extremity edema. Comparison: March 11, 2019. PA/lateral chest again demonstrates normal heart, lungs, and bony thorax.
== END 2019-07-14 00:30 | disposition home or self-care (01) ==
LOC: ED 22:25
DX: J44.9 Chronic obstructive pulmonary disease, unspecified (principal); J20.9 Acute bronchitis, unspecified; J44.0 Chronic obstructive pulmonary disease with (acute) lower respiratory infection; M79.89 Other specified soft tissue disorders; Z86.711 Personal history of pulmonary embolism; Z79.01 Long term (current) use of anticoagulants; Z86.718 Personal history of other venous thrombosis and embolism; I10 Essential (primary) hypertension; Z72.0 Tobacco use; R60.9 Edema, unspecified
CPT/HCPCS: 36415; 71046; 80053; 83605; 83880; 84484; 85025; 93005; 93041; 94150; 94640; 99284; A9270-GY

== ENCOUNTER 2019-10-17 07:05 | Day surgery (SDC) | payer OTHER ==
[2019-10-17] MEDS ORDERED: Marcaine 0.5% SDV 10 ML ONE (07:49)
[2019-10-17] MEDS ORDERED: XYLOCAINE 1% HCL 20 ML MDV ONE (07:49)
[2019-10-17] MEDS ORDERED: Lactated Ringers 1,000 ML IV ONE (07:52)
[2019-10-17] MEDS ORDERED: Lactated Ringers 1,000 ML IV SCH (08:00)
[2019-10-17 09:06] VITALS: O2SAT 96
--- NOTE | 2019-10-17 09:19 | XRAY ---
Indication: Multiple foot injections. Intraoperative fluoroscopy was provided for 1.1 minute. 3 digital spot images submitted for interpretation demonstrates needle tip projecting over the talonavicular articulation, 2nd cuneiform, and 3rd cuneiform. Correlate with intraoperative findings/report.
--- NOTE | 2019-10-17 09:38 | XRAY ---
1 minute and 1 second fluoroscopy time in surgery for multiple foot injections.
[2019-10-17 09:54] VITALS: BP 148/78; PULSE 58
--- NOTE | 2019-10-20 08:44 | OP ---
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 PROCEDURE: Multiple injections of the mid-foot same locations indicated before. SURGEON: Rudi Escamilla DPM. FR[employer] FOODS MANAGER: None. ANESTHESIA: None. HEMOSTASIS: None. ESTIMATED BLOOD LOSS: Less than 1 cc. INJECTABLES: MATERIALS: None. INJECTABLES: Four - 5 ml syringes filled with 1 cc lidocaine plain 1%, 1 cc of 0.5% Marcaine plain, and 0.5 cc of dexamethasone phosphate 10 mg for a total of 2 cc of dexamethasone and 4 cc of 1% lidocaine plain and 4 cc of 1% Marcaine plain. INDICATION FOR SURGERY: The patient came into the outpatient clinic one week prior to his intervention with complaint of mid-foot pain with ambulation. The patient did not sustain any significant traumatic injury. However, he is an uncontrolled diabetic and he noted some pain with piano-christiansen test and motion of the tarsometatarsal joints, navicular cuneiform joint and the tarsal navicular joint on range of motion exam. This prompted me to assess him radiographically with an x-ray of his left foot which showed a significant amount of degenerative joint disease to those locations. Conservative therapy was offered and topical nonsteroidal anti-inflammatories and bracing as well as orthotics. However, he did not get relief and cannot afford the custom molded orthotics that was recommended. At this time the patient is willing to go forward with the intraarticular injections which are the next step in my treatment regimen. The patient relates that he has had this pain for some time and it is preventing him from working without complication. The patient understands all risks, benefits and complications of the injection. There was no guarantee given to the outcome of these injections. However, he was advised that the risk is minimal and if in conjunction with a custom molded orthotic or a more stable shoe with a rock bottom, he may be able to get some pain relief for a long period of time without surgical intervention. The patient agrees and the consent was signed and in the chart for the procedure today. DESCRIPTION OF PROCEDURE AND FINDINGS: The patient was evaluated in the preoperative holding area. All questions were asked to the patient's satisfaction prior to taking him into the OR. The patient was placed on the OR table in the supine position and the area was prepped aseptically utilizing a ChloraPrep and allowed to dry the appropriate amount of time. At this time a C-arm was brought into the room. The patient was draped with a lead gown in order to protect him from any radiation. Attention was drawn under fluoroscopic imaging to the tarsal navicular joint where an injection of 1% lidocaine 1 cc, 0.5% Marcaine 1 cc, and 0.5 cc of dexamethasone phosphate was injected intraarticularly under fluoroscopic guidance. Next, we worked our way distal to the naviculocunieform joint where an injection of the same cocktail was placed within this joint under fluoroscopic guidance. The two remaining injections were placed into tarsometatarsal joints two, three, four and five divided the injections in half this was performed under fluoroscopic guidance. At this time the patient had finished the procedure. All fluoroscopic imaging was saved and recorded to show that there is adequate access to the intraarticular surfaces. The patient was advised to return to the clinic. The patient handled the procedure and was returned to the postoperative anesthesia care unit with vital signs stable and vascular status intact. Postoperative orders as follows: 1) Prescription for ibuprofen 600 mg dispense 60 for pain related to arthritis. 2) The patient can weight bare to tolerance today. 3) Bandages to stay on until tomorrow morning and then the patient may bath and function as normal. 4) The patient is to follow up in two weeks' time for reassessment and gauge the potential success or failure of our treatment today and move forward with care plan.
== END 2019-10-17 09:35 | disposition home or self-care (01) ==
LOC: SDC 07:05
PROVIDERS: ATTEND Podiatrist Foot & Ankle Surgery
DX: M19.072 Primary osteoarthritis, left ankle and foot (principal); I10 Essential (primary) hypertension; Z79.01 Long term (current) use of anticoagulants; Z79.899 Other long term (current) drug therapy
CPT/HCPCS: 20600; 73620; 77002

== ENCOUNTER 2020-01-09 08:46 | Day surgery (SDC) | payer OTHER ==
[~2020-01-09 08:46] MED LIST: Lactated Ringers 1,000 ML IV ONE; Lactated Ringers 1,000 ML IV SCH
[2020-01-09] MEDS ORDERED: Lactated Ringers 1,000 ML IV ONE ×3 (08:58→14:16)
[2020-01-09] MEDS ORDERED: CLINDAMYCIN-D5W 900 MG/50 ML*** 900 MG/50 ML BAG IV SCH (09:00)
[2020-01-09] MEDS ORDERED: Marcaine 0.5%/Epinephrine 10 ML ONE (09:32)
[2020-01-09 09:53] LABS: ALBUMIN 4.4 g/dL (3.5-5.0); ALKALINE PHOSPHATASE 71 U/L (38-126); ANION GAP 11.6 MEQ/L (5-15); BLOOD UREA NITROGEN 14 mg/dL (9-20); CHLORIDE 107 mmol/L (98-107); Calcium 9.2 mg/dL (8.4-10.2); Carbon Dioxide 25 mmol/L (22-30); Creatinine 1 0.67 mg/dL (0.66-1.25); EST GLOMERULAR FILTRATION RATE > 60.0 ML/MIN; Glucose 109 mg/dL (74-106); Potassium 4.5 mmol/L (3.5-5.1); SGOT/AST 48 U/L (17-59); SGPT/ALT 41 U/L (0-50); SODIUM 139 mmol/L (137-145)
[2020-01-09] MEDS ORDERED: SUBLIMAZE 250 MCG/5 ML ONE (10:51)
[2020-01-09] MEDS ORDERED: Versed 2 MG/2 ML Injection ONE (10:51)
[2020-01-09] MEDS ORDERED: Quelicin Fliptop 200 MG/10 ML ONE (10:51)
[2020-01-09] MEDS ORDERED: Zemuron 100 MG/10 ML ONE ×2 (10:51→14:37)
[2020-01-09] MEDS ORDERED: DIPRIVAN 200 MG/20 ML IV ONE (10:51)
[2020-01-09] MEDS ORDERED: XYLOCAINE 1% HCL 20 ML MDV ONE (11:40)
[2020-01-09] MEDS ORDERED: BUPIVACAINE 0.5% VIAL IJ ONE (11:40)
[2020-01-09] MEDS ORDERED: Ephedrine Sulfate 50 MG/ML ONE (12:55)
[2020-01-09] MEDS ORDERED: Naropin 0.5% 30 ML VIAL ONE (13:03)
[2020-01-09] MEDS ORDERED: BRIDION 200MG/2ML IV ONE (15:11)
--- NOTE | 2020-01-09 15:38 | XRAY ---
Indication: Left foot fusion surgery. Intraoperative fluoroscopy was provided for 170 seconds with 12 digital spot images demonstrating 3 orthopedic screws fixating mid tarsal bones. Correlate with intraoperative findings/report.
[2020-01-09 16:40] VITALS: O2SAT 97
[2020-01-09] MEDS ORDERED: ENOXAPARIN SODIUM SQ ONE (16:45)
--- NOTE | 2020-01-09 16:45 | XRAY ---
2 minutes and 50 seconds fluoroscopy time in surgery for fusion of the left mid-foot.
[2020-01-09 16:50] VITALS: BP 119/75; PULSE 78
--- NOTE | 2020-01-13 10:15 | OP ---
SURGERY DATE/TIME: 01/09/2020 1144 INDICATION FOR SURGERY: Bao has been seeing me for approximately three months with significant amount of pain with weight bearing to the right lower extremity. He has failed multiple interventions from a conservative standpoint including but not limited to injections, custom molded orthotics, [id number] orthotic brace and [id number] nonsteroidal anti-inflammatories. The patient failed all of those therapies and he is wishing to proceed with surgical intervention at this time. He understands all of the risks and benefits a result of surgical intervention as well as complications that could occur including but not limited to nonunion, poor wound healing, delayed wound healing and potential need for surgical intervention in the future and with this he wished to proceed with surgical intervention. 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 PROCEDURE: 1) Navicular cuneiform arthrodesis. 2) Second tarsometatarsal joint arthrodesis. 3) Gastrocnemius recession. SURGEON: Rudi Escamilla DPM. PHOTOGRAPHIC PROCESS SCREEN MAKER: None. ANESTHESIA: General with preoperative popliteal and saphenous block. HEMOSTASIS: Thigh tourniquet set to 350 mm of Mercury for 120 minutes. ESTIMATED BLOOD LOSS: Less than 30 cc. MATERIALS: Partially threaded cannulated 3-0 [place] screws as well as fully threaded cortical 3-0 screws and a four-hole eccentric compression plate, 2-0 Vicryl and 3-0 Nylon. INJECTABLES: See anesthesia report. DESCRIPTION OF PROCEDURE AND FINDINGS: Following adequate assessment by the anesthesia team, the patient was brought into the OR and placed on the OR table in the supine position. At this time well-padded thigh tourniquet was applied to the left lower extremity and the tourniquet was set to 350 mm of Mercury. At this time a U-drape was applied and the left leg was prepped and draped in the typical sterile fashion and lowered onto the surgical field. At this time attention was directed to the inner aspect of the left mid-calf where a linear incision was made at the posterior-medial aspect of the left calf at the aponeurosis of the gastrocnemius. At this time 15 blade was utilized to make a 5 mm incision which was deepened using blunt dissection in order to mobilize the adipose tissue in this area. The fascia was encountered and this encountered and this again was incised utilizing the 15 blade exposing the aponeurosis of the gastrocnemius. An [place] was utilized to retract both sides of this and visualization of the aponeurosis as well as the sural nerve was made which was retracted out of the incision site and the aponeurosis was resected without complications. At this time sterile saline was utilized to flush the incision site and the fascia was coapted with a 2-0 Vicryl in an interrupted suture-type fashion. At this time 2-0 Vicryl was then utilized to coapt the subcutaneous tissue and 3-0 Nylon was then utilized to coapt the skin edges in a horizontal mattress-type fashion everting the skin. At this time attention was directed to a small site over the dorsal aspect of the navicular cuneiform and the tarsometatarsal joint this was checked under fluoroscopic imaging and a small 8 cm incision was performed in a curvilinear-type fashion this was deepened to the inferior extensor retinaculum which was incised utilizing the 15 blade. At this time a combination of blunt and sharp dissection was utilized to get down to joint surfaces in order to prevent any neurovascular structure damage and these were retracted out of the way. At this time the tibialis anterior was encountered which was retracted out of the surgical field. Dissection was made at the dorsal aspect of the full thickness flap until the neurovascular structure was encountered which was then protected utilizing a [place] throughout the remaining portion of the procedure. At this time the navicular cuneiform joint was identified and the capsule was then resected all the way to the lateral cuneiform and the joint surface was prepped with a small curette osteotome and was microfractured with 2-0 drill bit. At this time the surfaces were fenestrated. All of the cartilage was removed prior to fenestration and microdrilling so as not to cause a nonunion of the navicular cuneiform joint. At this time a singular partially threaded screw was placed from distal to proximal at the medial cuneiform and the medial body of the navicular. Following this a screw extending from the navicular tuberosity to the lateral cuneiform was placed as well as a screw from the medial cuneiform to the lateral aspect of the navicular was thrown this was done under a lag technique-type fashion in order to get good compression. At this time there was deemed to be some intercuneiform instability and a screw was thrown from medial cuneiform to the lateral cuneiform in order stabilize this. At this time attention was then directed to the second tarsometatarsal joint where the CT scan demonstrated significant joint loss as well as there was a physical manipulation of the tarsometatarsal joint caused him some significant pain. The joint was identified under fluoroscopic imaging and was prepped utilizing a curved osteotome this was fenestrated using the 2-0 drill as well as microfracture. At this time a four-hole straight plate was applied to the dorsal aspect of this and checked under fluoroscopic imaging and deemed to be adequate. The proximal holes were filled with nonlocking screws. The eccentric drill hole was drilled and a screw was placed causing compression at the fusion site and a distal locking screw was applied to the distal aspect of the second tarsometatarsal. At this time augment was utilized to fill any of the dorsal gapping although clinically there was a significant amount of plantar compression at the navicular cuneiform joint as well as the tarsometatarsal joint. At this time the subcutaneous tissue was coapted utilizing 2-0 Vicryl and 3-0 Nylon was used to coapt the skin edges in a horizontal mattress-type fashion everting the skin. A postoperative dressing consisting of Adaptic, Betadine, 4x4, Kerlix cast padding, SADAF cast padding, posterior splint and additional SADAF was applied to the left lower extremity. The patient was then reversed from anesthesia. Tourniquet was taken down at 120 minutes total tourniquet time. The patient handled the anesthesia and procedure without complication and was returned to the postoperative anesthesia care unit with vital signs stable and vascular status intact. Postoperative orders as follows: 1) Keep postoperative dressing clean, dry and intact. Do not alter dressing in any way without consulting Dr. Rudi hogue. Dressing is to remain dry throughout the postoperative course. 2) Elevate operative extremity above the level of the heart to reduce inflammation and pain. 3) Ice behind the knee to reduce inflammation. 4) Weight bearing status: Nonweight bearing to the left lower extremity. 5) Full weight bearing to the nonoperative extremity with the assistance of crutches or knee scooter. 6) Postoperative pain control: [facility]adone [facility] will address pain if necessary. 7) Postoperative infection prophylaxis: Doxycycline 100 mg every 12 hours for the next ten days. 8) Deep venous thrombosis prophylaxis: Continue Lovenox 40 mg subcu daily until weight bearing as well as continue previous blood thinner. 9) Follow up in clinic within one week of procedure. 10) Discharge the patient to home.
== END 2020-01-09 17:20 | disposition home or self-care (01) ==
LOC: SDC 08:46
PROVIDERS: ATTEND Podiatrist Foot & Ankle Surgery
DX: M19.071 Primary osteoarthritis, right ankle and foot (principal); I10 Essential (primary) hypertension; E03.9 Hypothyroidism, unspecified; Z86.718 Personal history of other venous thrombosis and embolism; Z79.899 Other long term (current) drug therapy
CPT/HCPCS: 01474; 27687; 28730; 28737; 36415; 64450; 73620; 76000; 76942; 80053; J0330; J1650; J2250; J2704; J2795; J3010

== ENCOUNTER 2020-01-10 12:18 | Emergency (ER) | payer OTHER ==
--- NOTE | 2020-01-10 12:36 | ERPHSYRPT ---
- History of Present Illness Time Seen by Provider: 01/10/20 12:30 Source: patient Exam Limitations: no limitations Patient Subjective Stated Complaint: here for sudden onset of chest pain to center of chest with sob today at noon, had surgery on foot yesterday Triage Nursing Assessment: pt alert, resp easy, skin w/d/p,has splint to lower leg , Physician History: This is an overweight 39-year-old white male who underwent a surgical procedure on his left foot yesterday. Patient was off his Eliquis for several days prior to his procedure. Patient stated that he was given Lovenox yesterday before his discharge from the hospital. He was told to begin his Eliquis today which he did. This morning, approximately 10 AM, there was sudden onset of some sharp, mild, nonradiating, central, substernal chest pain with mild associated shortness of breath. 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 Patient is on the Eliquis for this medical issue. Patient has no flulike symptoms. He has no abdominal pain. He has not noticed an increase in swelling or pain to his left lower extremity. Quality: intermittent, sharpness Severity of Pain-Max: mild Severity of Pain-Current: none Lower Extremities Pain: foot: left Modifying Factors: Improves With: nothing Associated Symptoms: none Allergies/Adverse Reactions: cephalexin [From Keflex] Allergy (Severe, Verified 01/10/20 12:23) Rash Home Medications: Benazepril HCl 10 mg PO DAILY 08/14/18 [History] Levothyroxine Sodium 50 mcg PO DAILY 08/14/18 [History] Clomiphene Citrate [Serophene] 50 mg PO UD 10/15/19 [History] Methadone HCl 75 mg PO DAILY 10/15/19 [History] Albuterol 8 gm Mdi Hfa [Ventolin Hfa MDI] 8 gm IH Q4H PRN 01/09/20 [History] Hx Tetanus, Diphtheria Vaccination/Date Given: Yes Hx Influenza Vaccination/Date Given: Yes Hx Pneumococcal Vaccination/Date Given: No Travel Risk - International Travel Have you traveled outside of the country in past 3 weeks: No - Coronavirus Screening Are you exhibiting any of the following symptoms?: No Close contact with a COVID-19 positive Pt in past 14-21 Days: No - Review of Systems Constitutional: No Symptoms Eyes: No Symptoms Ears, Nose, & Throat: No Symptoms Respiratory: Dyspnea (Mild) Cardiac: Chest Pain (Nonradiating, sharp central substernal) Abdominal/Gastrointestinal: No Symptoms Genitourinary Symptoms: No Symptoms Musculoskeletal: No Symptoms Skin: No Symptoms Neurological: No Symptoms Psychological: No Symptoms Endocrine: No Symptoms Hematologic/Lymphatic: No Symptoms Immunological/Allergic: No Symptoms All Other Systems: Reviewed and Negative - Past Medical History Pertinent Past Medical History: Yes Neurological History: No Pertinent History ENT History: No Pertinent History Cardiac History: Deep Vein Thrombosis, Hypertension Respiratory History: Other Endocrine Medical History: No Pertinent History Musculoskeletal History: No Pertinent History GI Medical History: No Pertinent History History: No Pertinent History Psycho-Social History: No Pertinent History Male Reproductive Disorders: No Pertinent History Other Medical History: HTN,DVT,PE. Gout - Past Surgical History Past Surgical History: Yes Neuro Surgical History: No Pertinent History Cardiac: No Pertinent History Respiratory: No Pertinent History Gastrointestinal: No Pertinent History Genitourinary: No Pertinent History Musculoskeletal: Orthopedic Surgery Male Surgical History: No Pertinent History Other Surgical History: RIGHT FOOT,right foot - Social History Smoking Status: Never smoker How long have you smoked: age 16 Exposure to second hand smoke: Yes Drug Use: none Patient Lives Alone: No - Nursing Vital Signs Nursing Vital Signs: Initial Vital Signs Temperature 99.1 F 01/10/20 12:19 Pulse Rate 76 01/10/20 12:19 Respiratory Rate 18 01/10/20 12:19 Blood Pressure 159/76 01/10/20 12:19 Pain Scale Pain Intensity 2 - Physical Exam General Appearance: no apparent distress, alert, anxiety, obese Eyes, Ears, Nose, Throat Exam: normal ENT inspection, moist mucous membranes Neck Exam: normal inspection, non-tender, supple, full range of motion Cardiovascular/Respiratory Exam: normal breath sounds, regular rate/rhythm, heart sounds normal, no respiratory distress Gastrointestinal/Abdominal Exam: non-tender Back Exam: normal inspection, normal range of motion, No CVA tenderness, No vertebral tenderness Hips Exam: bilateral: non-tender, normal inspection, normal range of motion Legs Exam: bilateral leg: non-tender, normal inspection, normal range of motion Knees Exam: bilateral knee: non-tender, normal inspection, normal range of motion Ankle Exam: right ankle: non-tender, normal inspection, normal range of motion, no evidence of injury Foot Exam: right foot: non-tender, normal inspection, normal range of motion, no evidence of injury, left foot: pain (Postoperative) Neuro/Tendon Exam: normal sensation, normal motor functions, normal tendon functions, responds to pain, no evidence tendon injury Mental Status Exam: alert, oriented x 3, cooperative Skin Exam: normal color, warm, dry SpO2 Interpretation: normal O2 Delivery: Room Air - Course Nursing assessment & vital signs reviewed: Yes EKG Interpreted by Me: RATE (70), Sinus Rhythm, NORMAL AXIS, prolonged QT interval, NORMAL QRS, Other (No change from comparison EKG dated 01/06/2020) Ordered Tests: Active Orders 24 hr Category Date Time Status Returned Telephone Equipment Appraiser STAT Care 01/10/20 12:37 Active EKG-ER Only STAT Care 01/10/20 12:36 Active IV Insertion STAT Care 01/10/20 12:36 Active CHEST WITH CONTRAST [CT] Stat Exams 01/10/20 12:37 Taken CBC W DIFF Stat Lab 01/10/20 12:42 Completed CMP Stat Lab 01/10/20 12:42 Completed D-DIMER QUANTITATIVE Stat Lab 01/10/20 12:42 Completed NT PRO BNP Stat Lab 01/10/20 12:42 Completed PROTIME WITH INR Stat Lab 01/10/20 12:42 Completed TROPONIN Q3H Lab 01/10/20 12:42 Completed TROPONIN Q3H Lab 01/10/20 15:45 Ordered TROPONIN Q3H Lab 01/10/20 18:45 Ordered TROPONIN Q3H Lab 01/10/20 21:45 Ordered TROPONIN Q3H Lab 01/11/20 00:45 Ordered Medication Summary Discontinued Medications Generic Name Dose Route Start Last Admin Trade Name Freq PRN Reason Stop Dose Admin Sodium Chloride 500 mls @ 500 mls/hr 01/10/20 12:37 01/10/20 13:45 Sodium Chloride 0.9% 500 Ml IV 01/10/20 13:36 500 mls/hr .Q1H ONE Administration Sodium Chloride Confirm 01/10/20 13:43 Sodium Chloride 0.9% 500 Ml Administered 01/10/20 13:44 Dose 500 mls @ ud IV .STK-MED ONE Lab/Rad Data: Laboratory Result Diagrams 01/10/20 12:42 01/10/20 12:42 Laboratory Results 01/10/20 01/10/20 01/10/20 Range/Units 12:42 12:42 12:42 WBC (4.0-10.5) K/mm3 RBC (4.1-5.6) M/mm3 Hgb (12.5-18.0) gm/dl Hct (42-50) % MCV (78-100) fl MCH (26-32) pg MCHC (32-36) g/dl RDW (11.5-14.0) % Plt Count (150-450) K/mm3 MPV (7.5-11.0) fl Gran % (36.0-66.0) % Eos # (Auto) (0-0.5) Absolute Lymphs (auto) (1.0-4.6) Absolute Monos (auto) (0.0-1.3) Lymphocytes % (24.0-44.0) % Monocytes % (0.0-12.0) % Eosinophils % (0.00-5.0) % Basophils % (0.0-0.4) % Absolute Granulocytes (1.4-6.9) Basophils # (0-0.4) PT 15.4 H (8.83-12.87) SECONDS INR 1.36 (0.8-3.0) D-Dimer 912 H* (215-500) ng/mL Sodium 140 (137-145) mmol/L Potassium 3.8 (3.5-5.1) mmol/L Chloride 107 (98-107) mmol/L Carbon Dioxide 26 (22-30) mmol/L Anion Gap 10.5 (5-15) MEQ/L BUN 9 (9-20) mg/dL Creatinine 0.76 (0.66-1.25) mg/dL Estimated GFR > 60.0 ML/MIN Glucose 103 (74-106) mg/dL Calcium 9.1 (8.4-10.2) mg/dL Total Bilirubin 1.30 (0.2-1.3) mg/dL AST 51 (17-59) U/L ALT 35 (0-50) U/L Alkaline Phosphatase 61 (38-126) U/L Troponin I < 0.012 (0.000-0.034) ng/mL NT-Pro-B Natriuret Pep 329 (0-450) pg/mL Serum Total Protein 7.3 (6.3-8.2) g/dL Albumin 4.1 (3.5-5.0) g/dL 14 Range/Units 12:42 WBC 8.2 (4.0-10.5) K/mm3 RBC 4.73 (4.1-5.6) M/mm3 Hgb 14.2 (12.5-18.0) gm/dl Hct 42.1 (42-50) % MCV 89.0 (78-100) fl MCH 30.0 (26-32) pg MCHC 33.7 (32-36) g/dl RDW 14.5 H (11.5-14.0) % Plt Count 151 (150-450) K/mm3 MPV 10.5 (7.5-11.0) fl Gran % 65.5 (36.0-66.0) % Eos # (Auto) 0.03 (0-0.5) Absolute Lymphs (auto) 1.83 (1.0-4.6) Absolute Monos (auto) 0.95 (0.0-1.3) Lymphocytes % 22.3 L (24.0-44.0) % Monocytes % 11.6 (0.0-12.0) % Eosinophils % 0.4 (0.00-5.0) % Basophils % 0.2 (0.0-0.4) % Absolute Granulocytes 5.37 (1.4-6.9) Basophils # 0.02 (0-0.4) PT (8.83-12.87) SECONDS INR (0.8-3.0) D-Dimer (215-500) ng/mL Sodium (137-145) mmol/L Potassium (3.5-5.1) mmol/L Chloride (98-107) mmol/L Carbon Dioxide (22-30) mmol/L Anion Gap (5-15) MEQ/L BUN (9-20) mg/dL Creatinine (0.66-1.25) mg/dL Estimated GFR ML/MIN Glucose (74-106) mg/dL Calcium (8.4-10.2) mg/dL Total Bilirubin (0.2-1.3) mg/dL AST (17-59) U/L ALT (0-50) U/L Alkaline Phosphatase (38-126) U/L Troponin I (0.000-0.034) ng/mL NT-Pro-B Natriuret Pep (0-450) pg/mL Serum Total Protein (6.3-8.2) g/dL Albumin (3.5-5.0) g/dL - Progress Progress: improved, re-examined Progress Note: 01/10/20 14:39 CTA of the chest reveals no evidence of pulmonary emboli. There is no acute pulmonary process present. 01/10/20 14:48 Medical decision making: This patient has a history of pulmonary emboli and DVT in the past. He is on Eliquis. However, he has recently been off of his Eliquis for a few days because of a surgical procedure that took place yesterday. Patient was given a dose of Lovenox yesterday prior to his discharge to home and told to start his Eliquis today which he did. This morning, he had mild chest pain and shortness of breath and wanted to be sure that he did not have pulmonary emboli. His CAT scan of his chest with contrast does not show pulmonary emboli. We will give the patient another subcutaneous dose of Lovenox and he is to continue his Eliquis. He is to contact his surgeon and primary care provider on 01/12/2020 for further management. Counseled pt/family regarding: lab results, diagnosis, need for follow-up, rad results - Departure Departure Disposition: Home Clinical Impression: Chest pain, Shortness of breath Condition: Stable Critical Care Time: No Referrals: TRUE MARTÍNEZ, [Primary Care Provider] - Additional Instructions: Continue your postoperative instructions. Continue your Eliquis as prescribed. Follow-up with your surgeon and your primary care doctor on 01/12/2020 for further management and instructions.
[2020-01-10] MEDS ORDERED: Sodium Chloride 0.9% 500 ML 500 ML IV ONE ×2 (12:37→13:43)
[2020-01-10 12:45] LABS: Absolute Neutrophil Ct (ANC) 5.37 (1.4-6.9); BASOPHIL % 0.2 % (0.0-0.4); Basophil (Absolute #) 0.02 (0-0.4); Eosinophil % 0.4 % (0.00-5.0); Eosinophil (Absolute #) 0.03 (0-0.5); Hematocrit 42.1 % (42-50); Hemoglobin 14.2 gm/dl (12.5-18.0); Lymphocyte (Absolute #) 1.83 (1.0-4.6); Lymphocytes % 22.3 % (24.0-44.0); Mean Corpuscular Hgb Concent. 33.7 g/dl (32-36); Mean Platelet Volume 10.5 fl (7.5-11.0); Monocyte (Absolute #) 0.95 (0.0-1.3); Monocytes % 11.6 % (0.0-12.0); Neutrophil % 65.5 % (36.0-66.0); Platelet Count 151 K/mm3 (150-450); Red Blood Count 4.73 M/mm3 (4.1-5.6); Red Cell Distribution Width 14.5 % (11.5-14.0); White Blood Count 8.2 K/mm3 (4.0-10.5)
[2020-01-10 13:04] LABS: ALBUMIN 4.1 g/dL (3.5-5.0); ALKALINE PHOSPHATASE 61 U/L (38-126); ANION GAP 10.5 MEQ/L (5-15); BLOOD UREA NITROGEN 9 mg/dL (9-20); CHLORIDE 107 mmol/L (98-107); Calcium 9.1 mg/dL (8.4-10.2); Carbon Dioxide 26 mmol/L (22-30); Creatinine 1 0.76 mg/dL (0.66-1.25); EST GLOMERULAR FILTRATION RATE > 60.0 ML/MIN; Glucose 103 mg/dL (74-106); NT PRO BNP 329 pg/mL (0-450); Potassium 3.8 mmol/L (3.5-5.1); SGOT/AST 51 U/L (17-59); SGPT/ALT 35 U/L (0-50); SODIUM 140 mmol/L (137-145); Total Protein 7.3 g/dL (6.3-8.2)
[2020-01-10 13:29] LABS: INR 1.36 (0.8-3.0); PROTIME 15.4 SECONDS (8.83-12.87)
[2020-01-10] MEDS ORDERED: ENOXAPARIN SODIUM SQ ONE ×2 (14:51→14:53)
[2020-01-10 15:07] VITALS: BP 132/72; PULSE 68; O2SAT 98
--- NOTE | 2020-01-10 15:58 | XRAY ---
Indication: Short of breath and chest pain. History of pulmonary embolus. Multiple contiguous axial images obtained through the chest using 100 cc Isovue 370 contrast and PE protocol. Comparison: August 14, 2018. There is adequate opacification of the pulmonary arteries to include the lobar and segmental branches. No pulmonary embolus. Heart is not enlarged. Aorta is normal in course and caliber. Stable left hilar calcified nodes. No pathologic mediastinal/hilar lymphadenopathy. Lungs inflated with very minimal dependent atelectasis. No suspicious pulmonary mass, infiltrate, consolidation, or effusion. Bony thorax intact. Limited upper abdomen again demonstrates fatty liver and 15.8 cm splenomegaly. Impression: 1. Negative pulmonary embolus. No new/acute cardiopulmonary abnormalities. 2. Again incidental fatty liver, splenomegaly, and old granulomatous disease. Comment: Preliminary interpretation was made by [facility]. No critical discrepancy.
== END 2020-01-10 15:15 | disposition home or self-care (01) ==
LOC: ED 12:18
DX: R07.9 Chest pain, unspecified (principal); R06.02 Shortness of breath; I10 Essential (primary) hypertension; Z79.01 Long term (current) use of anticoagulants; Z79.899 Other long term (current) drug therapy; Z86.718 Personal history of other venous thrombosis and embolism; Z72.0 Tobacco use
CPT/HCPCS: 36000; 36415; 71260; 80053; 83880; 84484; 85025; 85379; 85610; 93005; 93041; 96360; 96372; 99284; J1650

== ENCOUNTER 2023-01-03 13:50 | Day surgery (SDC) | payer OTHER ==
[2023-01-03] MEDS ORDERED: LIDOCAINE HCL 2% 100 MG/5 ML IJ ONE (13:51)
[2023-01-03] MEDS ORDERED: DIPRIVAN 200 MG/20 ML IV ONE ×2 (17:07→17:14)
--- NOTE | 2023-01-03 18:05 | XRAY ---
Indication: Bilateral L3-L5 MBB. Intraoperative fluoroscopy provided for 31 seconds. 2 digital spot image submitted for interpretation demonstrates posterior needle tips projecting over the expected left and right L3-L5 nerve roots. Correlate with intraoperative findings/report.
--- NOTE | 2023-01-03 18:07 | XRAY ---
31 seconds of fluoroscopy was used in surgery for a bilateral L3-L5 MBB.
[2023-01-03] MEDS ORDERED: Lactated Ringers 1,000 ML IV ONE (19:06)
== END 2023-01-03 17:40 | disposition home or self-care (01) ==
LOC: SDC-PAIN 13:50
PROVIDERS: ATTEND Psychiatry & Neurology Pain Medicine
DX: M47.816 Spondylosis without myelopathy or radiculopathy, lumbar region (principal)
CPT/HCPCS: 64493; 64494; 72020; 77002; J2704

== ENCOUNTER 2023-04-04 10:40 | Day surgery (SDC) | payer OTHER ==
[2023-04-04] MEDS ORDERED: BUPIVACAINE 0.5% VIAL IJ ONE (10:41)
[2023-04-04] MEDS ORDERED: DIPRIVAN 200 MG/20 ML IV ONE (12:51)
[2023-04-04] MEDS ORDERED: Lactated Ringers 1,000 ML IV ONE (13:40)
--- NOTE | 2023-04-04 16:59 | XRAY ---
Indication: Bilateral L3-L5 MBB. Intraoperative fluoroscopy provided for 21 seconds. 2 digital spot images submitted for interpretation demonstrates posterior needle tips projecting over the expected left and right L3-L5 nerve roots. Correlate with intraoperative findings/report.
--- NOTE | 2023-04-04 17:41 | XRAY ---
21 seconds of fluoroscopy was used in surgery for a bilateral L3-L5 MBB.
== END 2023-04-04 13:17 | disposition home or self-care (01) ==
LOC: SDC-PAIN 10:40
PROVIDERS: ATTEND Psychiatry & Neurology Pain Medicine
DX: M47.816 Spondylosis without myelopathy or radiculopathy, lumbar region (principal)
CPT/HCPCS: 64493; 64494; 72020; 77002; J2704

== ENCOUNTER 2023-09-19 13:46 | Day surgery (SDC) | payer OTHER ==
[2023-09-19] MEDS ORDERED: LIDOCAINE HCL 1% 50 MG/5 ML VL PF IJ ONE (13:47)
[2023-09-19] MEDS ORDERED: BUPIVACAINE 0.5% VIAL IJ ONE (13:47)
[2023-09-19] MEDS ORDERED: Depo-Medrol 40 MG/ML IM ONE (13:47)
[2023-09-19] MEDS ORDERED: DIPRIVAN 200 MG/20 ML IV ONE (15:15)
--- NOTE | 2023-09-19 16:30 | XRAY ---
Indication: Right L3-L5 RFA. Intraoperative fluoroscopy provided for 24 seconds. 3 digital spot image submitted for interpretation demonstrates posterior needle tips projecting over the expected right L3-L5 nerve roots. Correlate with intraoperative findings/report.
--- NOTE | 2023-09-19 16:52 | XRAY ---
24 seconds of fluoroscopy was used in surgery for a right L3-L5 RFA.
[2023-09-19] MEDS ORDERED: Lactated Ringers 1,000 ML IV ONE (17:01)
== END 2023-09-19 15:41 | disposition home or self-care (01) ==
LOC: SDC-PAIN 13:46
PROVIDERS: ATTEND Psychiatry & Neurology Pain Medicine
DX: M47.816 Spondylosis without myelopathy or radiculopathy, lumbar region (principal)
CPT/HCPCS: 64635; 64636; 72100; 77002; J2001; J2704

== ENCOUNTER 2023-10-03 13:14 | Day surgery (SDC) | payer OTHER ==
[2023-10-03] MEDS ORDERED: Depo-Medrol 40 MG/ML IM ONE (13:15)
[2023-10-03] MEDS ORDERED: LIDOCAINE HCL 1% 50 MG/5 ML VL PF IJ ONE (13:15)
[2023-10-03] MEDS ORDERED: BUPIVACAINE 0.5% VIAL IJ ONE (13:15)
[2023-10-03] MEDS ORDERED: Lactated Ringers 1,000 ML IV ONE (14:35)
[2023-10-03] MEDS ORDERED: DIPRIVAN 200 MG/20 ML IV ONE ×2 (15:10→15:19)
--- NOTE | 2023-10-03 16:31 | XRAY ---
Indication: Left L3-L5 RFA. Intraoperative fluoroscopy provided for 22 seconds. 4 digital spot image submitted for interpretation demonstrates posterior needle tips projecting over the expected left L3-L5 nerve roots. Correlate with intraoperative findings/report.
--- NOTE | 2023-10-04 08:52 | XRAY ---
22 seconds of fluoroscopy was used in surgery for a left L3-L5 RFA.
== END 2023-10-03 15:43 | disposition home or self-care (01) ==
LOC: SDC-PAIN 13:14
PROVIDERS: ATTEND Psychiatry & Neurology Pain Medicine
DX: M47.816 Spondylosis without myelopathy or radiculopathy, lumbar region (principal)
CPT/HCPCS: 64635; 64636; 72100; 77002; J2001; J2704